=== PATIENT | female | born 1980 | race Caucasian/White ===

== ENCOUNTER 2023-04-06 20:49 | Emergency (ER) | payer OTHER, SELFPAY ==
[2023-04-06] VITALS (10 sets, daily range): BP systolic 130–134; BP diastolic 80–92; PULSE 64–94; RESP 18; TEMP 36.1; O2SAT 96–100; BMI 44.3
--- NOTE | 2023-04-06 21:16 | CRLHL7_ITS ---
For Patients: As a result of the Cures Act, medical imaging exams and procedure reports are released immediately into your electronic medical record. You may view this report before your referring provider. If you have questions, please contact your health care provider. Indication: Chest pain, chest pressure Technique: Two views of the chest Comparison: None Findings: Lungs are clear. No pleural effusion or pneumothorax. Normal heart size. Normal mediastinal contour. No acute fracture. Mild multilevel degenerative changes of the spine. Visualized upper abdomen is unremarkable. Impression: No acute cardiopulmonary process. Dictated by Porter Mejia MD @ 04/06/2023 10:02:28 PM (Electronically Signed)
--- NOTE | 2023-04-06 21:17 | ED_ITS ---
HPI - Chest Pain General Chief Complaint: Chest Pain Stated Complaint: Chest pressure Time Seen by Provider: 04/06/23 21:04 Source: patient Mode of arrival: ambulatory Limitations: no limitations History of Present Illness HPI narrative: 42-year-old female presents the emergency department with a 4-5 hour history of chest pain that started at rest. Located in the epigastric region that radiates up into the lower central chest. It is not accompanied by nausea, shortness of breath, cough or fever. No trauma or injury. Does not worsen on exertion. Does not endorse any exercise intolerance recently. She does have a history of gastric reflux which has been doing very well on famotidine which she continues to take daily. She did not try taking any antacids, Tylenol, ibuprofen or any other medications to treat her symptoms. Symptoms have worsened slightly, accompanied by some sweating this evening. She has no prior history of cardiac disease. No family history of premature coronary artery disease. No history of hyperlipidemia. She does not smoke. She has never had a stress test or echo. No history of DVT or PE. She does not endorse any shortness of breath or productive cough. Pain is constant, dull and achy in nature. It is a little worse with taking a deep breath. Past medical history notable for morbid obesity, GERD. She denies any other long-term health problems. No recent surgeries. Allergies are to sulfas and penicillins. Socially she is a nonsmoker with no pertinent travel. ROS is notable for the chest symptoms as above, otherwise denies times 12 systems. Related Data Previous Rx's Medication Instructions Recorded famotidine 40 mg tablet 40 mg PO QDAY #90 tabs 10/08/22 Allergies Allergy/AdvReac Type Severity Reaction Status Date / Time Sulfa (Sulfonamide Allergy Intermediate Verified 04/06/23 20:59 Antibiotics) penicillins Allergy Intermediate Uncoded 04/06/23 20:59 [facility] PFS Social History Smoking Status: Former smoker How often do you have a drink containing alcohol: never AUDIT-C Alcohol total score: 0 Non-prescribed substance use: denies use service: No Exam Const Vital Signs, click to edit/add: Vital Signs - 24 hr 04/06/23 20:59 04/06/23 21:08 04/06/23 21:09 Temperature 97.0 F L Pulse Rate 83 83 Pulse Rate [Right Pulse Oximeter] 94 Respiratory Rate 18 Blood Pressure 134/92 H Blood Pressure [Right Upper Arm] 132/82 Pulse Oximetry 97 99 99 Oxygen Delivery Method Room Air 04/06/23 21:15 04/06/23 21:34 04/06/23 21:45 Temperature Pulse Rate 79 75 92 Pulse Rate [Right Pulse Oximeter] Respiratory Rate Blood Pressure Blood Pressure [Right Upper Arm] Pulse Oximetry 98 99 96 Oxygen Delivery Method 04/06/23 22:00 04/06/23 22:15 04/06/23 22:30 Temperature Pulse Rate 76 67 64 Pulse Rate [Right Pulse Oximeter] Respiratory Rate Blood Pressure Blood Pressure [Right Upper Arm] Pulse Oximetry 100 99 98 Oxygen Delivery Method 04/06/23 22:32 Temperature Pulse Rate Pulse Rate [Right Pulse Oximeter] Respiratory Rate Blood Pressure Blood Pressure [Right Upper Arm] 130/80 Pulse Oximetry Oxygen Delivery Method Documenting provider has reviewed patient's vital signs: yes Other: Anxious and restless but cooperates well with exam. HENMT Common normals: normocephalic Head and scalp: normocephalic Face and sinus: normal facial exam Mouth: oral and palatal mucosa normal Throat: posterior oropharynx normal Eye Common normals: conjunctivae normal General eye: normal appearance of both eyes Conjunctiva: conjunctiva(e) normal Resp Common normals: normal respiratory effort, no use of accessory muscles and clear to auscultation bilaterally Effort & inspection: able to speak in complete sentences Auscultation: clear to auscultation bilaterally Cardio Common normals: regular rate, regular rhythm, S1 normal heart sound, S2 normal heart sound and no murmurs Rate: regular rate Rhythm: regular rhythm Heart sounds: S1 normal and S2 normal GI Common normals: Normal to inspection, nondistended, normoactive bowel sounds present, soft to palpation, no hepatosplenomegaly and no masses Palpation: soft and no hepatosplenomegaly Other: Tender palpation of epigastrium only. Mild. No rebound tenderness or guarding. No obvious mass. It is difficult to palpate the borders of the organs due to obesity. Extremity Common normals: no pedal edema Neuro Speech: speech normal Gait (neuro): normal gait Motor exam: no movement abnormalities noted Psych Common normals: thought process normal Mood and affect: anxious Thought process: normal thought process Insight: fair Judgement: fair Skin Common normals: no rashes or lesions noted General skin exam: no rashes or lesions noted Course Course Hospital Course: Differential diagnosis including acute coronary syndrome, arrhythmia, congestive heart failure, pulmonary embolism, musculoskeletal chest pain, GERD, esophagitis, among others. Exam, symptoms at rest suspicious for GI etiology. Symptoms did happen after eating as well. Recommend trial of Maalox, typical cardiac workup. [facility] winder, EKG and chest x-ray. Will re-evaluate once results are available and we have had time to assess response to Maalox. Reevaluation(s) Time of Reevaluation #1: 22:33 Reevaluation #1: Labs and imaging findings reviewed with patient, all very reassuring. She does confess that she ate a large late lunch of [employer] and drink Dr. Bell prior to her symptoms starting. Repeat exam still does not show any tenderness over the for the gallbladder and right upper quadrant, more so the left epigastrium. Did not improved with Maalox. She has not had any vomiting, hypoxia, unstable vitals. Will try dose of omeprazole and ibuprofen. Patient requested a work note through the . The rationale for this is unclear and I have declined this request. She may re-evaluate with her primary care provider if needed. Vital Signs Vital signs: Initial Vital Signs Temperature 97.0 F L 04/06/23 20:59 Temperature Source Temporal Artery Scan 04/06/23 20:59 Pulse Rate 94 04/06/23 20:59 Respiratory Rate 18 04/06/23 20:59 Blood Pressure 132/82 04/06/23 20:59 Blood Pressure Mean 98 04/06/23 20:59 Blood Pressure Position Sitting 04/06/23 20:59 Pulse Oximetry 97 04/06/23 20:59 Oxygen Delivery Method Room Air 04/06/23 20:59 Vital Signs Temperature 97.0 F L 04/06/23 20:59 Pulse Rate 94 04/06/23 20:59 Respiratory Rate 18 04/06/23 20:59 Blood Pressure 132/82 04/06/23 20:59 Pulse Oximetry 97 04/06/23 20:59 Oxygen Delivery Method Room Air 04/06/23 20:59 Temperature 97.0 F L 04/06/23 20:59 Pulse Rate 64 04/06/23 22:30 Respiratory Rate 18 04/06/23 20:59 Blood Pressure 130/80 04/06/23 22:32 Pulse Oximetry 98 04/06/23 22:30 Oxygen Delivery Method Room Air 04/06/23 20:59 MDM - Chest Pain Differential Diagnosis Differential diagnosis: Likely pneumothorax, stable angina, unstable angina pectoris, atypical chest pain, st elevation myocardial infarction, costochondritis, chest pain and biliary colic Lab Data Attestation: I reviewed the patient's lab results. Lab results narrative: All reassuring. Labs: Lab Results 04/06/23 04/06/23 Range/Units 21:16 21:25 WBC 9.54 (4.50-11.00) K/uL RBC 5.10 (4.00-5.20) m/uL Hgb 12.7 (12.0-16.0) gm/dL Hct 39.5 (33.0-51.0) % MCV 78 L (80-100) fL MCH 25 L (26-34) pg MCHC 32 (32-36) gm/dL RDW Coeff of [place] 14.5 (11.5-15.5) % Plt Count 317 (140-440) K/uL Neut % (Auto) 65.0 (42.0-72.0) % Lymph % (Auto) 26.7 (20-44) % Harris % (Auto) 6.4 (0.0-11.0) % Eos % (Auto) 1.4 (0.0-7.0) % Baso % (Auto) 0.4 (0.0-3.0) % Neut # (Auto) 6.20 (1.7-7.0) K/uL Lymph # (Auto) 2.55 (0.90-2.90) K/uL Harris # (Auto) 0.60 (0.00-0.90) K/UL Eos # (Auto) 0.13 (0.00-0.50) K/uL Baso # (Auto) 0.04 (0.00-0.30) K/uL Abs Immat Gran (auto) 0.01 (0.00-0.30) K/uL Imm/Tot Granulo (auto) 0.1 % Sodium 136 (135-149) mmol/L Potassium 3.7 (3.6-5.1) mmol/L Chloride 104 (96-114) mmol/L Carbon Dioxide 24 (20-32) mmol/L BUN 17 (5-24) mg/dL Creatinine 0.8 (0.5-1.5) mg/dL Estimated Creat Clear 75.78 Estimated GFR 94 ml/min Glucose 122 H (60-115) mg/dL Calcium 8.4 (8.4-10.6) mg/dL Total Bilirubin 0.2 (0.1-1.5) mg/dL AST 20 (12-35) U/L ALT 20 (4-35) U/L Alkaline Phosphatase 80 (40-150) U/L Troponin I < 0.01 L (0.01-0.04) ng/mL C-Reactive Protein 1.6 H (0.5-1.0) mg/dL Total Protein 7.5 (6.0-8.3) g/dL Albumin 3.8 (3.3-5.0) g/dL POC Troponin I 0.00 L (0.01-0.04) ng/ml ECG Data Attestation: I personally reviewed and interpreted this ECG as follows: Prior ECG tracings: not available for review Interpretation: Normal sinus rhythm, rate of [address] or T-wave abnormalities. Good R-wave progression. Normal axis. Discharge Plan Discharge Clinical Impression: Chest pain, non-cardiac Patient Disposition: Home, Self-Care Condition: Stable Instructions: Noncardiac Chest Pain (ED) Additional Instructions: Thankfully, there are no signs of trouble with the heart tonight. I suspect that your symptoms are either from gastric reflux or biliary colic. There are no signs of an infection or blockage within the gallbladder. Since her pain is located more over the stomach, I do not think pursuing further workup with the gallbladder will be helpful tonight. I was hoping the Maalox would be more helpful for you. As a second-line treatment, your given ibuprofen and omeprazole. This can take an hour or so to fully kick in. I reassured by your x-ray, blood work and EKG that there is nothing too serious going on tonight. I would recommend you follow a soft, bland diet. No carbonated beverages or alcohol for the next few days. Continue taking your famotidine. Consider adding in omeprazole prior to your evening meal, 20 mg [id number] dose for the next 5 days. If her symptoms fail to improve, I would recommend you follow- up with your primary care doctor in 48 hours. We can also consider additional w orkup on the gallbladder at that time to see if this is contributing. It is okay to use Tylenol and ibuprofen for the pain and it would also be okay to try Tums or other similar antacids. If you have severe shortness of breath, loss of consciousness, severe vomiting, blood in her stools or coughing up blood, I would come back to the emergency department. Activity Level: Activity as Tolerated Discharge Diet: Regular Prescriptions: No Action famotidine 40 mg tablet 40 mg PO QDAY Qty: 90 3RF Follow Up/Referrals: Suha Feliz MD [Primary Care Provider] - Stand Alone Forms: [employer] Info Instructions
[2023-04-06 21:31] LABS: Basophils Absolute Auto 0.04 K/uL (0.00-0.30); Basophils Percent Auto 0.4 % (0.0-3.0); Eosinophils Absolute Auto 0.13 K/uL (0.00-0.50); Eosinophils Percent Auto 1.4 % (0.0-7.0); Hematocrit 39.5 % (33.0-51.0); Hemoglobin* 12.7 gm/dL (12.0-16.0); Immature Granulocytes Abs Auto 0.01 K/uL (0.00-0.30); Immature Granulocytes Pct Auto 0.1 %; Lymphocytes Absolute Auto 2.55 K/uL (0.90-2.90); Lymphocytes Percent Auto 26.7 % (20-44); Mean Corpuscular HGB Conc 32 gm/dL (32-36); Mean Corpuscular Hemoglobin 25 pg (26-34); Mean Corpuscular Volume 78 fL (80-100); Monocytes Percent Auto 6.4 % (0.0-11.0); Platelet Count* 317 K/uL (140-440); RDW Coefficient of Variation % 14.5 % (11.5-15.5); White Blood Count* 9.54 K/uL (4.50-11.00)
[2023-04-06 21:34] LABS: Slide Review Reflex No
[2023-04-06] MEDS: MAG HYDROX/ALUMINUM HYD/SIMETH 30 ML ORAL.SUSP PO (21:42)
[2023-04-06] MEDS: ACETAMINOPHEN 500 MG TABLET 1000 MG PO (21:42)
[2023-04-06 21:44] LABS: Albumin* 3.8 g/dL (3.3-5.0); Chloride* 104 mmol/L (96-114)
[2023-04-06 21:45] LABS: Potassium* 3.7 mmol/L (3.6-5.1); Sodium* 136 mmol/L (135-149)
[2023-04-06 21:47] LABS: Creatinine* 0.8 mg/dL (0.5-1.5); Est. Creatinine Clearance* 75.78; Estimated Glomerular Filt Rate 94 ml/min
[2023-04-06 21:48] LABS: Alanine Aminotransferase* 20 U/L (4-35); Alkaline Phosphatase* 80 U/L (40-150); Aspartate Amino Transferase* 20 U/L (12-35); Bilirubin Total* 0.2 mg/dL (0.1-1.5); Blood Urea Nitrogen* 17 mg/dL (5-24); Calcium* 8.4 mg/dL (8.4-10.6); Carbon Dioxide* 24 mmol/L (20-32); Glucose* 122 mg/dL (60-115); Total Protein* 7.5 g/dL (6.0-8.3)
[2023-04-06 21:50] LABS: C Reactive Protein* 1.6 mg/dL (0.5-1.0)
[2023-04-06 22:00] LABS: Troponin I* < 0.01 ng/mL (0.01-0.04)
[2023-04-06] MEDS: OMEPRAZOLE 20 MG CAPSULE DR PO (22:32)
[2023-04-06] MEDS: IBUPROFEN 200 MG TABLET 600 MG PO (22:32)
--- NOTE | 2023-04-06 22:46 | ED.NURSE ---
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 Spoke with Dr. Sosa and confirmed that this current diagnosis would not restrict her from work at this time. Updated the patient. At the patient request, gave a copy of the signature page of the discharge instructions with a statement indicating that the patient was seen tonight in the ER but did not indicate any work restrictions or reason to be off work at this time.
== END 2023-04-06 22:49 | disposition home or self-care (01) ==
PROVIDERS: Emergency Provider Family Medicine; PCP Family Medicine
DX: R07.89 Other chest pain (principal)
CPT/HCPCS: 36415; 71046; 80053; 84484; 85025; 86140; 93005; 99284; 99285; A9270

== ENCOUNTER 2023-04-17 08:22 | Outpatient (CLI) | payer OTHER, SELFPAY ==
--- NOTE | 2023-04-17 08:45 | CRLHL7_ITS ---
For Patients: As a result of the Century Cures Act, medical imaging exams and procedure reports are released immediately into your electronic medical record. You may view this report before your referring provider. If you have questions, please contact your health care provider. INDICATION: Epigastric pain TECHNIQUE: Ultrasound abdomen limited. Sonographic images of the right upper quadrant were obtained using marmolejo-scale and color Doppler images. COMPARISON: None FINDINGS: Liver: Normal in size diffuse fatty infiltration. No masses. No intrahepatic biliary dilatation. Gallbladder: Cholelithiasis. Normal wall thickness. No pericholecystic fluid. Common bile duct: 4 mm. Pancreas: Normal. Right kidney: 10.7 cm. Normal echotexture and cortex. No masses, stones, or hydronephrosis. IMPRESSION: Infiltration of the liver. Cholelithiasis in an otherwise normal appearing gallbladder. Normal common bile duct appeared Dictated by Chinmay King MD @ 04/17/2023 9:30:58 AM (Electronically Signed)
== END 2023-04-17 08:23 | disposition home or self-care (01) ==
PROVIDERS: PCP Family Medicine; Visit Provider Family Medicine
DX: R10.13 Epigastric pain (principal); K80.20 Calculus of gallbladder without cholecystitis without obstruction; K76.89 Other specified diseases of liver
CPT/HCPCS: 76705

== ENCOUNTER 2023-04-24 13:43 | Outpatient (CLI) | payer OTHER, SELFPAY ==
[2023-04-24 14:40] VITALS: BP 148/88; PULSE 84; RESP 18
--- NOTE | 2023-04-24 14:42 | W.PM.STED ---
Stress Test Note Date Date Seen: 04/24/23 Date of test: 04/24/23 Providers Primary care provider: Suha Feliz Stress test physician: Dora Boyle Stress Test Note Stress test ordered: Stress Echo Indication for test: Chest pain Stress test medicine: None Results discussion: Resting EKG: Sinus rhythm, roughly 75 beats per minute. Flipped T-waves V1 and V2 without any significant ST segment changes. Resting blood pressure: 120/80 Stress test: Patient was exercised on the treadmill following standard Dion protocol. She was only able to exercise to 6 minutes 17 seconds due to bilateral knee pain from arthritis and inability to continue at that level of exercise do shortness of breath. She had no chest pain. There was some significant baseline artifact at times during recovery. During the stress test portion, no arrhythmia or significant ischemic change was noted. Likewise in recovery, no ischemia no arrhythmia, patient recovered back to baseline. She achieved 7.5 Mets at this level of activity. She had a maximum heart rate of 155 beats per minute which was 102% of a calculated target heart rate of 151. She had a rate pressure product of 20,148. Await echo images to be read by Cardiology. Impression: Subjectively negative, objectively negative EKG portion of this stress test, poor exercise tolerance is noted. Follow up suggested: Patient will await the echo images to couple this for a full formal diagnostic, she will hear from her ordering physician once the echo report is complete. She is discharged from stress testing in stable condition.
== END 2023-04-24 13:44 | disposition home or self-care (01) ==
LOC: STRESS 13:43
PROVIDERS: PCP Family Medicine; Visit Provider Family Medicine
DX: R07.89 Other chest pain (principal)
CPT/HCPCS: 93016; 93325; 93351

== ENCOUNTER 2023-05-15 08:53 | Outpatient (CLI) | payer OTHER, SELFPAY | END 2023-05-15 08:54 | disposition home or self-care (01) | LOC: NFLDREF 05-17 12:25 | PROVIDERS: PCP Family Medicine; Referring Provider Family Medicine; Visit Provider Family Medicine | DX: Z01.419 Encounter for gynecological examination (general) (routine) without abnormal findings (principal); E78.5 Hyperlipidemia, unspecified; R73.03 Prediabetes; R71.8 Other abnormality of red blood cells; E78.6 Lipoprotein deficiency; E66.01 Morbid (severe) obesity due to excess calories; F32.A Depression, unspecified; F41.9 Anxiety disorder, unspecified | CPT/HCPCS: 80061; 82728; 84443 ==

== ENCOUNTER 2023-06-12 06:07 | Day surgery (SDC) | payer OTHER, SELFPAY ==
[2023-06-12] VITALS (13 sets, daily range): BP systolic 133–171; BP diastolic 76–118; PULSE 56–90; RESP 12–24; TEMP 36.2–36.9; O2SAT 95–100; BMI 46.5
[2023-06-12] MEDS: LACTATED RINGERS 1000 ML 1,000 ML 100 ML IV (06:53)
[2023-06-12] MEDS: SODIUM CHLORIDE 0.9 % (FLUSH) 10 ML SYRINGE IVF (06:53)
[2023-06-12] MEDS: CEFAZOLIN 2 GM INJ IVP (07:52)
--- NOTE | 2023-06-12 07:56 | W.ANESCHARGE ---
Anesthesia Charges Start Date/Time Anesthesia Start Date: 06/12/23 Anesthesia Start Time: 07:40 Stop Date/Time Anesthesia Stop Date: 06/12/23 Anesthesia Stop Time: 09:16
[2023-06-12] MEDS: BUPIVACAINE 0.5% 30 ML 20 ML INJECTION (08:03)
--- NOTE | 2023-06-12 08:06 | SUR.OPER ---
PATIENT QUESTIONS ANSWERED SATISFACTORILY PREOPERATIVELY. PATIENT BROUGHT TO OR #3 PER CART. Patient positioned supine on OR #3 bed. The perioperative team supported arms bilaterally on arm boards. Final approval of positioning by surgeon.
--- NOTE | 2023-06-12 09:03 | PM.GSPRC ---
Operative Note Pre-op diagnosis: Biliary colic Post-op diagnosis: Same Type of Procedure: Laparoscopic cholecystectomy Indications: Patient is a 42-year-old female who presented to clinic with symptomatic biliary colic. Risks and benefits of operative intervention were discussed at length with the patient. Risks included but was not limited to: Bleeding, infection, risk of damage to surrounding structures, possible need for additional procedures, possible need to convert to an open operation and postoperative complications such as pneumonia, pulmonary emboli or TN. All questions and concerns were addressed with the patient agreeing to proceed. Procedure Description: After discussing the risks and benefits of the procedure, the patient signed informed consent.? The operative site was marked and the patient was brought to the operating room and placed on the operating table in supine position.? Care was taken to pad the patient's pressure points.?? The patient was then intubated by anesthesia.?? The operative site was then prepped and draped in the usual sterile fashion.? A time-out was then performed. Entrance to the abdomen was gained via a 5 mm Visiport in the left upper quadrant. The abdomen was insufflated and briefly surveyed for signs of injury. There was none. 11 mm supra umbilical port was placed as well as 2 working ports along the right costal margin. Patient was then placed in reverse Trendelenburg position with the right side up. The gallbladder fundus was grasped and retracted cephalad. A small amount of dissection was needed to free omental adhesions from the gallbladder. The infundibulum was grasped. A combination of hook cautery and blunt dissection was used to carefully dissect out the cystic duct and artery until they could clearly be seen entering the gallbladder without any intervening structures. The gallbladder was dissected off the cystic plate to achieve the critical view. Once this was achieved the cystic duct and artery were each clipped with 2 clips proximally and 1 clip distally and transected with the scissors. The gallbladder was then taken off of the liver bed. The liver was very fatty in soft. A superficial tear occurred during dissection of the gallbladder off of the fossa. Minimal bleeding occurred, which was controlled with electrocautery. The gallbladder was removed from the abdomen using an Endo-Catch bag. The gallbladder bed was surveyed for hemostasis, which was excellent. The umbilical port fascia was closed with 0 Vicryl via a Alex Jaylen. All other ports removed under direct visualization. The skin was closed with absorbable subcuticular suture. Instrument sponge and needle counts were correct at the end of the case. The patient was then woken and transferred to the PACU in stable condition. Sterile dressings were then applied. ? Findings: Cholelithiasis Anesthesia: LAURA Surgeon: Althea Mason MD Estimated blood loss (mL): 15 Specimen: Gallbladder Condition: stable Disposition: PACU Date of procedure: 06/12/23
--- NOTE | 2023-06-12 09:25 | W.ANESCHARGE ---
Anesthesia Charges Start Date/Time Anesthesia Start Date: 06/12/23 Anesthesia Start Time: 07:40 Stop Date/Time Anesthesia Stop Date: 06/12/23 Anesthesia Stop Time: 09:16
[2023-06-12] MEDS: KETOROLAC 15 MG/ML inj IVP (10:02)
[2023-06-12] MEDS: HYDROCODONE-ACETAMIN 5-325 MG 1 TAB PO (11:07)
== END 2023-06-12 12:18 | disposition home or self-care (01) ==
PROVIDERS: PCP Family Medicine; Visit Provider Surgery
PROC: 0FT44ZZ Resection of Gallbladder, Percutaneous Endoscopic Approach (ICD-10-PCS; CPT 47562; principal; 2023-06-12 07:30)
DX: K80.10 Calculus of gallbladder with chronic cholecystitis without obstruction (principal)
CPT/HCPCS: 47562; 00790; 88304; A9270; J0330; J0665; J0690; J1100; J1200; J1885; J2250; J2371; J2405; J2704; J3010; J7120

== ENCOUNTER 2023-06-26 13:48 | Outpatient (CLI) | payer OTHER, SELFPAY ==
--- NOTE | 2023-06-26 13:40 | CRLHL7_ITS ---
For Patients: As a result of the Century Cures Act, medical imaging exams and procedure reports are released immediately into your electronic medical record. You may view this report before your referring provider. If you have questions, please contact your health care provider. BILATERAL SCREENING MAMMOGRAM WITH COMPUTER-AIDED DETECTION TECHNIQUE: CC and MLO views were obtained. These mammographic images have been obtained using full-field digital technique. These mammographic images were interpreted with the benefit of computer-aided detection. COMPARISON FILM: 10/04/21. FINDINGS: The breasts are almost entirely fatty IMPRESSION: There is no radiographic evidence for malignancy. ASSESSMENT: BI-RADS Category 2: Benign RECOMMENDATION: Routine screening mammogram in 1 year. A lay language report of this examination will be provided to the patient. Chinmay Dias M.D. Diagnostic Radiologist [email or web address] ELIAS/Dictated by: Chinmay Dias MD @ 06/27/2023 12:22:00 PM (Electronically Signed)
== END 2023-06-26 13:49 | disposition home or self-care (01) ==
LOC: MAMMO 13:50
PROVIDERS: PCP Family Medicine; Visit Provider Family Medicine
DX: Z12.31 Encounter for screening mammogram for malignant neoplasm of breast (principal)
CPT/HCPCS: 77063; 77067

== ENCOUNTER 2023-06-30 15:08 | Emergency (ER) | payer OTHER, SELFPAY ==
[2023-06-30 15:44] VITALS: BP 130/80; PULSE 56; RESP 20; TEMP 36.2; O2SAT 99; BMI 45.2
--- NOTE | 2023-06-30 16:59 | ED_ITS ---
HPI - General Adult General Time Seen by Provider: 17:00 Date Seen: 06/30/23 Chief complaint: Abdominal Pain Stated complaint: Gall bladder surgery 06/12-sharp pain on R side Time Seen by Provider: 06/30/23 16:32 History of Present Illness HPI narrative: This is a very pleasant 42-year-old female with a past medical history including gallstones, laparoscopic cholecystectomy performed on 06/12, epigastric pain, GERD, prediabetes, obesity, migraine headaches, anxiety/depression. She reports that she had her gallbladder surgery a on the and that the surgery seemed to be going well. She did have some anticipated postoperative pain but got better fairly quickly and was back to work, working part-time within a week of her surgery. She feels like she might have gone back to work too quickly but overall was healing well so she was able to go back. She normally works 10-12 hour shifts, but has only been working 8 hour shifts since her surgery, to light in her overall burden. She had been doing well. Last week she began to have some mild episodes of right upper quadrant crampy pain. They were fairly manageable. However since Friday and that she has been having more significant severe crampy pain affecting her right upper quadrant and right flank. She is not sure what made the pain get worse. No clear injury, food, or provoking factor. No other symptoms. No nausea or vomiting. No diarrhea. No urinary symptoms. She had a normal menstrual cycle last week and that is over. She does not think she is . No fevers. No rash. Her incisions med healing well. No redness, bleeding, purulent drainage. Related Data Previous Rx's Medication Instructions Recorded omeprazole 40 mg capsule,delayed 40 mg PO QDAY #90 caps 05/22/23 release semaglutide (weight loss) 0.25 0.25 mg (0.5 mL) subcut QWEEK #2 mL 05/22/23 mg/0.5 mL subcutaneous pen injector (Wegovy) semaglutide (weight loss) 0.5 0.5 mg (0.5 mL) subcut Q7D #2 mL 05/22/23 mg/0.5 mL subcutaneous pen injector (Wegovy) hydrocodone 5 mg-acetaminophen 325 1 tab PO Q6H PRN pain #15 tabs 06/12/23 mg tablet sennosides 8.6 mg capsule (senna) 8.6 mg PO DAILY PRN constipation 06/12/23 #90 caps calcium polycarbophil 625 mg 1,250 mg (2 x 625 mg) PO BID #100 06/26/23 tablet (FiberCon) tabs hydrocodone 5 mg-acetaminophen 325 1 tab PO Q6H PRN pain #10 tabs 06/30/23 mg tablet Allergies Allergy/AdvReac Type Severity Reaction Status Date / Time Sulfa (Sulfonamide Allergy Intermediate Verified 06/30/23 17:41 Antibiotics) Penicillins Allergy Unknown Unknown Verified 06/30/23 17:41 [facility] Medical History (Updated 06/30/23 @ 19:08 by Yrn Almodovar MD) GERD (gastroesophageal reflux disease) (2018) ?K21.9 - Gastro-esophageal reflux disease without esophagitis (ICD-10) Varicose veins of left lower extremity ?I83.92 - Asymptomatic varicose veins of left lower extremity (ICD-10) Superficial thrombophlebitis ?I80.9 - Phlebitis and thrombophlebitis of unspecified site (ICD-10) Prediabetes (02/2020) ?R73.03 - Prediabetes (ICD-10) High density lipoprotein (HDL) less than 40 mg/dL ?E78.6 - Lipoprotein deficiency (ICD-10) History of migraine ?Z86.69 - Personal history of other diseases of the nervous system and sense organs (ICD-10) History of chronic back pain ?Z87.39 - Personal history of other diseases of the musculoskeletal system and connective tissue (ICD-10) Surgical History (Updated 04/08/23 @ 06:26 by Suha Feliz MD) Encounter for Essure implantation ?Z30.2 - Encounter for sterilization (ICD-10) History of arthroscopy of left knee (2016) ?Z98.890 - Other specified postprocedural states (ICD-10) Family History (Updated 04/07/23 @ 12:36 by Deena Khan ~ PSR) Mother Diabetes Migraine headache High blood pressure Maternal Grandmother Diabetes Social History (Updated 05/22/23 @ 13:08 by Brittani Pierce ~ CTA) Narrative: 3 kids Stock Analyst at [employer] Social drinker 1-2 week stopped smoking 2018, 15 pack years Does not exercise What is your current living situation?: I presently have a place to live Problems where you live: no known problems In the past 12 months, utilities in danger of being shut off: no In past 12 months, lack of transportation kept you from medical appts, meetings, work, or getting things needed for daily living: no In the past 12 mos, have been you worried that your food would run out before you had money to buy more?: never true In the past 12 mos, the food you bought just didn't last and you didn't have money to buy more?: never true Smoking Status: Never smoker How often do you have a drink containing alcohol: never AUDIT-C Alcohol total score: 0 Non-prescribed substance use: denies use How often does anyone, including family, friends and others, physically hurt you : never How often does anyone, including family, friends and others, insult or talk down to you: rarely How often does anyone, including family, friends and others, threaten you with harm: never How often does anyone, including family, friends and others, scream or curse at you: rarely Little interest or pleasure in doing things: more than half the days Feeling down, depressed, or hopeless: more than half the days Are you using contraception or practicing any form of control: No service: No Exam Narrative: Exam Narrative: Constitutional: Appears well-developed and well-nourished. Alert. Conversant. Non toxic. She is uncomfortable but politely declines the offer of analgesia. HENT: Head: Atraumatic. Nose: Nose normal. Mouth/Throat: Oral mucosa is clear and moist. no trismus. Pharynx normal. Tonsils symmetric. No tonsillar enlargement, erythema, or exudate. Eyes: Conjunctivae normal. EOM normal. Pupils equal, round, and reactive to light. No scleral icterus. Neck: Normal range of motion. Neck supple. No tracheal deviation present. Cardiovascular: Normal rate, regular rhythm. No gallop. No friction rub. No murmur heard. Symmetric radial artery pulses Pulmonary/Chest: Effort normal. No stridor. No respiratory distress. No wheezes. No rales. No rhonchi . No tenderness. Abdominal: For healing laparoscopic incisions look good. She does have tenderness in the right upper quadrant. No Browne sign. Mild right CVA tenderness. Otherwise left upper quadrant and lower abdomen is nontender. Soft. Bowel sounds normal. No distension. No mass. No rebound. No guarding. Musculoskeletal: RUE: Normal range of motion. No tenderness. No deformity LUE: Normal range of motion. No tenderness. No deformity RLE: Normal range of motion. No edema. No tenderness. No deformity LLE: Normal range of motion. No edema. No tenderness. No deformity Neurological: Alert and oriented to person, place, and time. Normal strength. CN II-VII intact. No sensory deficit. GCS eye subscore is 4. GCS verbal subscore is 5. GCS motor subscore is 6. Normal coordination Skin: Skin is warm and dry. No rash noted. No pallor. Normal capillary refill. Psychiatric: Normal mood. Normal affect. Const: Vital Signs, click to edit/add: Vital Signs - 24 hr 06/30/23 15:44 06/30/23 17:30 Temperature 97.2 F L Pulse Rate [Right Pulse Oximeter] 56 L 58 L Respiratory Rate 20 20 Blood Pressure [Ri ght Upper Arm] 130/80 152/77 H Pulse Oximetry 99 99 Oxygen Delivery Me thod Room Air Room Air Course Course ED Course: Recheck-rip patient resting in bed. Still having some pain but Tolerable. Discussed with her surgeon, Dr. Mason. Dr. Mason recommends outpatient follow-up. No acute surgical intervention or hospitalization at this time. She recommends bland diet, rest, follow-up in clinic with the patient's primary care provider (or with her). Vital Signs Vital signs: Initial Vital Signs Temperature 97.2 F L 06/30/23 15:44 Temperature Source Temporal Artery Scan 06/30/23 15:44 Pulse Rate 56 L 06/30/23 15:44 Respiratory Rate 20 06/30/23 15:44 Blood Pressure 130/80 06/30/23 15:44 Blood Pressure Mean 96 06/30/23 15:44 Blood Pressure Position Sitting 06/30/23 15:44 Pulse Oximetry 99 06/30/23 15:44 Oxygen Delivery Method Room Air 06/30/23 15:44 Vital Signs Temperature 97.2 F L 06/30/23 15:44 Pulse Rate 56 L 06/30/23 15:44 Respiratory Rate 20 06/30/23 15:44 Blood Pressure 130/80 06/30/23 15:44 Pulse Oximetry 99 06/30/23 15:44 Oxygen Delivery Method Room Air 06/30/23 15:44 Temperature 97.2 F L 06/30/23 15:44 Pulse Rate 58 L 06/30/23 17:30 Respiratory Rate 20 06/30/23 17:30 Blood Pressure 152/77 H 06/30/23 17:30 Pulse Oximetry 99 06/30/23 17:30 Oxygen Delivery Method Room Air 06/30/23 17:30 Medical Decision Making MDM Narrative Medical decision making narrative: Presented to the Emergency Department with right upper quad abdominal pain she is currently about 2 and half weeks status post laparoscopic cholecystectomy. Per patient and surgeon report the surgery was uneventful and went smoothly. She had been recovering nicely but now is having flaring pain for the past few days.. The differential diagnosis of abdominal pain includes: Bile leak, postoperative abscess, infection, abdominal wall cellulitis or abscess, he patitis, pancreatitis, kidney stone, pyelonephritis, early onset Appendicitis, Bowel Obstruction, Ulcer, Ischemia, Diverticulitis, Pancreatitis, UTI, kidney stone, Enteritis/Colitis, amongst many other etiologies. Laboratory testing does not reveal a cause for the patient's pain. negative. Fortunately, CT Imaging is noted to be normal. Discussed with her surgeon, Dr. Mason. She recommends supportive care, pain control, bland diet, and outpatient follow-up either with her primary care or with Dr. Mason in clinic. At this point no surgical emergency. No need for transfer to for ERCP. The exact etiology of the abdominal pain is not clear at this time. No life threatening cause or need for emergent surgery or hospital admission is detected today. The patient was advised that if symptoms do not completely resolve within another 24 hours re-evaluation with primary care , or surgery, or return to the ED is indicated. The patient also understands that if they worsen, they should return to the ER right away. I discussed the uncertainty about the diagnosis and answered the patient's questions. Abdominal pain return precautions discussed. Refill prescription for hydrocodone provided. Reviewed opiate precautions and sedation. Work note provided. Lab Data Labs: Lab Results 06/30/23 06/30/23 Range/Units 17:03 17:25 WBC 8.43 (4.50-11.00) K/uL RBC 4.87 (4.00-5.20) m/uL Hgb 12.0 (12.0-16.0) gm/dL Hct 38.3 (33.0-51.0) % MCV 79 L (80-100) fL MCH 25 L (26-34) pg MCHC 31 L (32-36) gm/dL RDW Coeff of [place] 14.5 (11.5-15.5) % Plt Count 305 (140-440) K/uL Neut % (Auto) 58.5 (42.0-72.0) % Lymph % (Auto) 33.9 (20-44) % Creek % (Auto) 5.2 (0.0-11.0) % Eos % (Auto) 2.0 (0.0-7.0) % Baso % (Auto) 0.4 (0.0-3.0) % Neut # (Auto) 4.93 (1.7-7.0) K/uL Lymph # (Auto) 2.86 (0.90-2.90) K/uL Creek # (Auto) 0.40 (0.00-0.90) K/UL Eos # (Auto) 0.17 (0.00-0.50) K/uL Baso # (Auto) 0.03 (0.00-0.30) K/uL Abs Immat Gran (auto) 0.00 (0.00-0.30) K/uL Imm/Tot Granulo (auto) 0.0 % Sodium 137 (135-149) mmol/L Potassium 4.1 (3.6-5.1) mmol/L Chloride 106 (96-114) mmol/L Carbon Dioxide 25 (20-32) mmol/L Anion Gap 6 L (7-15) mEq/L BUN 16 (5-24) mg/dL Creatinine 0.8 (0.5-1.5) mg/dL Estimated Creat Clear 75.78 Estimated GFR 94 ml/min Glucose 87 (60-115) mg/dL Calcium 8.8 (8.4-10.6) mg/dL Total Bilirubin 0.3 (0.1-1.5) mg/dL AST 31 (12-35) U/L ALT 24 (4-35) U/L Alkaline Phosphatase 93 (40-150) U/L Total Protein 7.7 (6.0-8.3) g/dL Albumin 4.0 (3.3-5.0) g/dL Lipase 86 (23-300) U/L Urine Color Yellow (Yellow) Urine Appearance Clear (Clear) Urine pH 5.5 (5.0-8.5) Ur Specific Eastern >= 1.030 (1.000-1.030) Urine Protein Negative (Negative) Urine Glucose (UA) Negative (Negative) Urine Ketones Negative (Negative) Urine Blood Negative (Negative) Urine Nitrite Negative (Negative) Urine Bilirubin Negative (Negative) Urine Urobilinogen 0.2 (0.2-1.0) Ur Leukocyte Esterase Negative (Negative) Urine RBC 0-2 (0-2) Urine WBC 0-2 (0-5) Ur Squamous Epith Cells Few (None-Few) Urine Bacteria Few A (None) Urine HCG, Qual Negative (Negative) Imaging Data CT scan - abdomen: Attestation: I have reviewed the pertinent imaging results. Radiologist's impression: Impression: Minimal residual postoperative changes from likely ventral abdominal port site in the epigastrium with mild residual fluid and inflammatory change. Prior cholecystectomy with otherwise unremarkable operative bed. No acute intra-abdominal abnormalities or complications. Discharge Plan Discharge Clinical Impression: Abdominal pain, RUQ Patient Disposition: Home, Self-Care Condition: Stable Instructions: Abdominal Pain (ED) Additional Instructions: Has was discussed, for the next couple of days try to rest and avoid strenuous physical activity or lifting. Try to eat healthy but bland diet. Use pain medications if needed but be careful because they can cause drowsiness, dizziness, and constipation. If your pain is not completely improve within 24-48 hours, recheck with Dr. Mason or with your regular doctor. If you are not able to recheck with her doctors, come back to the ER. If your pain gets worse, or if you have other w orsening symptoms, come back to the ER right away. Prescriptions: New hydrocodone-acetaminophen 5-325 mg tablet 1 tab PO Q6H PRN (Reason: pain) Qty: 10 0RF No Action Wegovy 0.25 mg/0.5 mL pen injector 0.25 mg subcut QWEEK Qty: 2 0RF Rx Instructions: administer weeks 1 through 4 of therapy Wegovy 0.5 mg/0.5 mL pen injector 0.5 mg subcut Q7D Qty: 2 0RF Rx Instructions: administer weeks 5 through 8 of therapy omeprazole 40 mg capsule,delayed release(DR/EC) 40 mg PO QDAY Qty: 90 3RF calcium polycarbophil [FiberCon] 625 mg tablet 1,250 mg PO BID Qty: 100 5RF hydrocodone-acetaminophen 5-325 mg tablet 1 tab PO Q6H PRN (Reason: pain) Qty: 15 0RF senna 8.6 mg capsule 8.6 mg PO DAILY PRN (Reason: constipation) Qty: 90 0RF Follow Up/Referrals: Suha Feliz MD [Primary Care Provider] - Stand Alone Forms: MyHealth Info Instructions
--- NOTE | 2023-06-30 17:02 | CRLHL7_ITS ---
For Patients: As a result of the Century Cures Act, medical imaging exams and procedure reports are released immediately into your electronic medical record. You may view this report before your referring provider. If you have questions, please contact your health care provider. Indication: Right upper quadrant pain x2 weeks status post laparoscopic surgery Technique: Volumetric multidetector CT images of the abdomen and pelvis were obtained after the administration of intravenous contrast. 125 cc Isovue 370 low osmolar intravenous contrast Comparison: Abdominal ultrasound April 17, 2023 Findings: The lung bases are clear. The liver is normal in attenuation without intrahepatic biliary ductal dilatation. The portal vein is patent. There is prior cholecystectomy. No evidence of biloma or complication within the operative bed. There is no significant common biliary ductal dilatation or abrupt cut off. The spleen is normal in enhancement and size. The stomach and duodenum are grossly unremarkable. The pancreas is normal in enhancement without significant atrophy. The adrenal glands are unremarkable. The kidneys demonstrate preserved corticomedullary differentiation without evidence of obstructive uropathy. There is moderate stool seen throughout the colon with decompressed appearance of the distal colon with colonic diverticulosis without evidence of diverticulitis. The appendix is unremarkable. There is no significant mesenteric, retroperitoneal, or pelvic sidewall lymph nodes. The aorta is nonaneurysmal. There is no significant atherosclerotic disease appreciated. Fallopian tube occlusion devices are appreciated. Otherwise, the pelvic viscera are grossly within normal limits. There is no free fluid or free air. There is demonstration of minimal residual likely postoperative seroma and/or hematoma within the right upper quadrant abdominal wall within the superficial soft tissues. There is demonstration of a fat containing umbilical hernia. Mild degenerative changes of the lumbar spine are appreciated without acute osseous abnormality. Impression: Minimal residual postoperative changes from likely ventral abdominal port site in the epigastrium with mild residual fluid and inflammatory change. Prior cholecystectomy with otherwise unremarkable operative bed. No acute intra-abdominal abnormalities or complications. Please note that all CT scans at this facility use dose modulation, iterative reconstruction, and/or weight-based dosing when appropriate to reduce radiation dose to as low as reasonably achievable. Dictated by Scotty Castellano MD @ 06/30/2023 6:31:50 PM (Electronically Signed)
[2023-06-30 17:20] LABS: Appearance Urine Clear (Clear); Bilirubin Urine Negative (Negative); Blood Urine Negative (Negative); Color Urine Yellow (Yellow); Glucose Urine Negative (Negative); Ketones Urine Negative (Negative); Leukocyte Esterase Urine Negative (Negative); Nitrite Urine Negative (Negative); Protein Urine Negative (Negative); Specific Gravity Urine >= 1.030 (1.000-1.030); Urobilinogen Urine 0.2 (0.2-1.0); pH Urine 5.5 (5.0-8.5)
[2023-06-30 17:22] LABS: Ur HCG Qualitative* Negative (Negative)
[2023-06-30 17:30] VITALS: BP 152/77; PULSE 58; RESP 20; O2SAT 99
[2023-06-30 17:32] LABS: Basophils Absolute Auto 0.03 K/uL (0.00-0.30); Basophils Percent Auto 0.4 % (0.0-3.0); Eosinophils Absolute Auto 0.17 K/uL (0.00-0.50); Hematocrit 38.3 % (33.0-51.0); Lymphocytes Absolute Auto 2.86 K/uL (0.90-2.90); Lymphocytes Percent Auto 33.9 % (20-44); Mean Corpuscular HGB Conc 31 gm/dL (32-36); Mean Corpuscular Hemoglobin 25 pg (26-34); Mean Corpuscular Volume 79 fL (80-100); Monocytes Percent Auto 5.2 % (0.0-11.0); Neutrophils Absolute Auto 4.93 K/uL (1.7-7.0); Neutrophils Percent Auto 58.5 % (42.0-72.0); Platelet Count* 305 K/uL (140-440); RDW Coefficient of Variation % 14.5 % (11.5-15.5); Red Blood Count 4.87 m/uL (4.00-5.20); White Blood Count* 8.43 K/uL (4.50-11.00)
[2023-06-30 17:33] LABS: Bacteria Urine Few; RBC Urine 0-2 (0-2); Squamous Epithelial Cell Urine Few (None-Few); WBC Urine 0-2 (0-5)
[2023-06-30 17:35] LABS: Slide Review Reflex No
[2023-06-30 17:52] LABS: Chloride* 106 mmol/L (96-114); Potassium* 4.1 mmol/L (3.6-5.1); Sodium* 137 mmol/L (135-149)
[2023-06-30 17:54] LABS: Anion Gap 6 mEq/L (7-15); Bilirubin Total* 0.3 mg/dL (0.1-1.5); Carbon Dioxide* 25 mmol/L (20-32); Creatinine* 0.8 mg/dL (0.5-1.5); Est. Creatinine Clearance* 75.78; Estimated Glomerular Filt Rate 94 ml/min
[2023-06-30 17:55] LABS: Alanine Aminotransferase* 24 U/L (4-35); Alkaline Phosphatase* 93 U/L (40-150); Aspartate Amino Transferase* 31 U/L (12-35); Blood Urea Nitrogen* 16 mg/dL (5-24); Calcium* 8.8 mg/dL (8.4-10.6); Glucose* 87 mg/dL (60-115); Lipase* 86 U/L (23-300); Total Protein* 7.7 g/dL (6.0-8.3)
== END 2023-06-30 19:25 | disposition home or self-care (01) ==
PROVIDERS: Emergency Provider Emergency Medicine; PCP Family Medicine
DX: R10.11 Right upper quadrant pain (principal)
CPT/HCPCS: 36415; 74177; 80053; 81001; 81025; 83690; 85025; 87086; 99284; Q9967

== ENCOUNTER 2023-07-10 11:29 | Emergency (ER) | payer OTHER, SELFPAY ==
[2023-07-10 11:35] VITALS: BP 115/84; PULSE 73; RESP 14; TEMP 36.2; O2SAT 100; BMI 46.1
--- NOTE | 2023-07-10 12:18 | ED_ITS ---
HPI - General Adult General Time Seen by Provider: 12:18 Date Seen: 07/10/23 Chief complaint: Abdominal Pain Stated complaint: R side pain Time Seen by Provider: 07/10/23 11:47 History of Present Illness HPI narrative: pleasant 42-year-old female with a past medical history including gallstones, laparoscopic cholecystectomy performed on 06/12, epigastric pain, GERD, prediabetes, obesity, migraine headaches, anxiety/depression. She returns to the ER today for re-evaluation of ongoing right upper quadrant abdominal pain. She had her gallbladder surgery a on the and that the surgery seemed to be going well. She did have some anticipated postoperative pain but got better fairly quickly and was back to work, working part-time within a week of her surgery. After that she redeveloped some worsening right upper quadrant abdomin al pain and came to the ER on 06/30. I saw her. At that point exam was reassuring. Workup was reassuring. CBC, CMP, lipase, urinalysis, CT scan all essentially normal. I gave her a note for work. She had a follow-up visit with her PCP on 07/04-4 days later. She had a repeat CBC that was normal. She had a plain film of her abdomen that showed nonspecific findings, possibly enteritis. She was put on senna for possible constipation. She had been stooling even before the senna. On the senna she now is having 2-3 BMs per day. She was also to told to start taking a high- fiber diet. On that stools became more loose. Since she has been stooling regularly, at least a couple of times per day, she has taken herself off of her senna and fiber. She still having ongoing pain in her right upper quadrant. She says the pain comes and goes but is worse when she sits up and is better when she lays semi recumbent. She says it feels like ?a ball? is in there. Sometimes the ball is small, roughly the size of her fist and sometimes it spreads out to involved most of her upper abdomen. No other symptoms. No jaundice. No rash. No fever. No nausea or vomiting. She is having soft bowel movements a couple of times a day but not really diarrhea or bloody stool. No urinary symptoms. Sensor clinic follow-up her bowel movements have been at least a couple of times today so she stopped the senna. She still has the ongoing pain like a ball in her right upper quadrant. No other new symptoms. No fever. No jaundice. No trouble breathing. No cough. No rashes. No injury. Normal appetite. No urinary symptoms. She culture clinic today to get an extension work note so she can miss more time from work to recover. She was referred by her primary care back to the ER today. Related Data Previous Rx's Medication Instructions Recorded omeprazole 40 mg capsule,delayed 40 mg PO QDAY #90 caps 05/22/23 release semaglutide (weight loss) 0.25 0.25 mg (0.5 mL) subcut QWEEK #2 mL 05/22/23 mg/0.5 mL subcutaneous pen injector (Wegovy) semaglutide (weight loss) 0.5 0.5 mg (0.5 mL) subcut Q7D #2 mL 05/22/23 mg/0.5 mL subcutaneous pen injector (Wegovy) sennosides 8.6 mg capsule (senna) 8.6 mg PO DAILY PRN constipation 06/12/23 #90 caps calcium polycarbophil 625 mg 1,250 mg (2 x 625 mg) PO BID #100 06/26/23 tablet (FiberCon) tabs hydrocodone 5 mg-acetaminophen 325 1 tab PO Q6H PRN pain #10 tabs 06/30/23 mg tablet cyclobenzaprine 10 mg tablet 10 mg PO BID PRN muscle spasm #14 07/04/23 tabs cyclobenzaprine 10 mg tablet 10 mg PO Q12H PRN muscle spasm #10 07/10/23 tabs Allergies Allergy/AdvReac Type Severity Reaction Status Date / Time Sulfa (Sulfonamide Allergy Intermediate Verified 07/04/23 14:56 Antibiotics) Penicillins Allergy Unknown Unknown Verified 07/04/23 14:56 [facility] Medical History (Updated 07/10/23 @ 14:14 by Yrn Almodovar MD) Cholelithiasis ?K80.20 - Calculus of gallbladder without cholecystitis without obstruction (ICD-10) GERD (gastroesophageal reflux disease) (2018) ?K21.9 - Gastro-esophageal reflux disease without esophagitis (ICD-10) Varicose veins of left lower extremity ?I83.92 - Asymptomatic varicose veins of left lower extremity (ICD-10) Superficial thrombophlebitis ?I80.9 - Phlebitis and thrombophlebitis of unspecified site (ICD-10) Prediabetes (02/2020) ?R73.03 - Prediabetes (ICD-10) High density lipoprotein (HDL) less than 40 mg/dL ?E78.6 - Lipoprotein deficiency (ICD-10) History of migraine ?Z86.69 - Personal history of other diseases of the nervous system and sense organs (ICD-10) History of chronic back pain ?Z87.39 - Personal history of other diseases of the musculoskeletal system and connective tissue (ICD-10) Surgical History (Updated 07/04/23 @ 07:29 by Suha Feliz MD) History of cholecystectomy (06/12/23) ?Z90.49 - Acquired absence of other specified parts of digestive tract (ICD- 10) Encounter for Essure implantation ?Z30.2 - Encounter for sterilization (ICD-10) History of arthroscopy of left knee (2015) ?Z98.890 - Other specified postprocedural states (ICD-10) Family History (Updated 04/07/23 @ 12:36 by Deena Khan ~ PSR) Mother Diabetes Migraine headache High blood pressure Maternal Grandmother Diabetes Social History (Updated 05/22/23 @ 13:08 by Brittani Pierce ~ CTA) 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[employer] Social drinker 1-2 week stopped smoking 2018, 15 pack years Does not exercise What is your current living situation?: I presently have a place to live Problems where you live: no known problems In the past 12 months, utilities in danger of being shut off: no In past 12 months, lack of transportation kept you from medical appts, meetings, work, or getting things needed for daily living: no In the past 12 mos, have been you worried that your food would run out before you had money to buy more?: never true In the past 12 mos, the food you bought just didn't last and you didn't have money to buy more?: never true Smoking Status: Never smoker Do you use any of these nicotine containing products: None How often do you have a drink containing alcohol: never How often do you have six or more drinks on one occasion: Never AUDIT-C Alcohol total score: 0 Non-prescribed substance use: denies use How often does anyone, including family, friends and others, physically hurt you : never How often does anyone, including family, friends and others, insult or talk down to you: rarely How often does anyone, including family, friends and others, threaten you with harm: never How often does anyone, including family, friends and others, scream or curse at you: rarely Little interest or pleasure in doing things: more than half the days Feeling down, depressed, or hopeless: more than half the days Are you using contraception or practicing any form of control: No service: No Exam Narrative: Exam Narrative: Constitutional: Appears well-developed and well-nourished. Alert. Conversant. Non toxic. HENT: Head: Atraumatic. Nose: Nose normal. Mouth/Throat: Oral mucosa is clear and moist. no trismus. Pharynx normal. Tonsils symmetric. No tonsillar enlargement, erythema, or exudate. Eyes: Conjunctivae normal. EOM normal. Pupils equal, round, and reactive to light. No scleral icterus. Neck: Normal range of motion. Neck supple. No tracheal deviation present. Cardiovascular: Normal rate, regular rhythm. No gallop. No friction rub. No murmur heard. Symmetric radial artery pulses Pulmonary/Chest: Effort normal. No stridor. No respiratory distress. No wheezes. No rales. No rhonchi . No tenderness. Abdominal: Soft. Bowel sounds normal. No distension. No mass. Mild right upper quadrant tenderness. No Browne sign No rebound. No guarding. Her laparoscopic incisions appear to be healing well. No dehiscence, drainage, erythema. The suprapubic laparoscopic incision is nontender but does have a little bit of firm tissue in the subcutaneous region, likely scarring/healing from stitches. Not really consistent with a hematoma or seroma and his not in the area of her pain. Musculoskeletal: RUE: Normal range of motion. No tenderness. No deformity LUE: Normal range of motion. No tenderness. No deformity RLE: Normal range of motion. No edema. No tenderness. No deformity LLE: Normal range of motion. No edema. No tenderness. No deformity Lymph: No cervical adenopathy. Neurological: Alert and oriented to person, place, and time. Normal strength. CN II-VII intact. No sensory deficit. GCS eye subscore is 4. GCS verbal subscore is 5. GCS motor subscore is 6. Normal coordination Skin: Skin is warm and dry. No rash noted. No pallor. Normal capillary refill. Psychiatric: Normal mood. Normal affect. Const: Vital Signs, click to edit/add: Vital Signs - 24 hr 07/10/23 11:35 07/10/23 13:53 Temperature 97.2 F L Pulse Rate [Pulse Oximeter] 73 85 Respiratory Rate 14 20 Blood Pressure [Ri ght Upper Arm] 115/84 113/87 Pulse Oximetry 100 100 Oxygen Delivery Me thod Room Air Room Air Course Reevaluation(s) Reevaluation #1: Labs back, they look normal/reassuring. Discussed with surgery, Dr. Harrison. She reviewed the patient's presentation, recent labs, imaging findings. Recommendations would be supportive care for now, follow-up [facility]. Given restrictions, the patient will need time off work. She needs a note. I will give the patient a note to be off work until follow-up. Vital Signs Vital signs: Initial Vital Signs Temperature 97.2 F L 07/10/23 11:35 Temperature Source Temporal Artery Scan 07/10/23 11:35 Pulse Rate 73 07/10/23 11:35 Pulse Rhythm Regular 07/10/23 11:35 Respiratory Rate 14 07/10/23 11:35 Blood Pressure 115/84 07/10/23 11:35 Blood Pressure Mean 94 07/10/23 11:35 Blood Pressure Position Sitting 07/10/23 11:35 Pulse Oximetry 100 07/10/23 11:35 Oxygen Delivery Method Room Air 07/10/23 11:35 Vital Signs Temperature 97.2 F L 07/10/23 11:35 Pulse Rate 73 07/10/23 11:35 Respiratory Rate 14 07/10/23 11:35 Blood Pressure 115/84 07/10/23 11:35 Pulse Oximetry 100 07/10/23 11:35 Oxygen Delivery Method Room Air 07/10/23 11:35 Temperature 97.2 F L 07/10/23 11:35 Pulse Rate 85 07/10/23 13:53 Respiratory Rate 20 07/10/23 13:53 Blood Pressure 113/87 07/10/23 13:53 Pulse Oximetry 100 07/10/23 13:53 Oxygen Delivery Method Room Air 07/10/23 13:53 Medical Decision Making MDM Narrative Medical decision making narrative: This patient returns to the Emergency Department with ongoing right upper quad abdominal pain she is currently a almost a month status post laparoscopic cholecystectomy. Per patient and surgeon report the surgery was uneventful and went smoothly. I saw her on the and at that time labs and CT imaging were reassuring. She had follow-up labs and x-ray imaging on the that were again essentially normal. The differential diagnosis of abdominal pain includes: Bile leak, postoperative abscess, infection, abdominal wall cellulitis or abscess, hepatitis, pancreatitis, kidney stone, pyelonephritis, early onset Appendicitis, Bowel Obstruction, Ulcer, Ischemia, Diverticulitis, Pancreatitis, UTI, kidney stone, Enteritis/Colitis, amongst many other etiologies. Laboratory testing does not reveal a cause for the patient's pain. LFTs and lipase fortunately normal. Discussed with on-call surgery, Dr. Stuart. She recommends supportive care, pain control, bland diet, and outpatient follow- up either with Dr. Mason in clinic in 1 week on 07/17. At this point no surgical emergency. No need for transfer to for ERCP. The exact etiology of the abdominal pain is not clear at this time. No life threatening cause or need for emergent surgery or hospital admission is detected today. The patient also understands that if they worsen, they should return to the ER right away. I discussed the uncertainty about the diagnosis and answered the patient's questions. Abdominal pain return precautions discussed. Reviewed opiate precautions and sedation. Work note provided. Refill prescription for Flexeril. Lab Data Labs: Lab Results 07/10/23 Range/Units 12:37 WBC 7.10 (4.50-11.00) K/uL RBC 4.99 (4.00-5.20) m/uL Hgb 12.2 (12.0-16.0) gm/dL Hct 39.0 (33.0-51.0) % MCV 78 L (80-100) fL MCH 24 L (26-34) pg MCHC 31 L (32-36) gm/dL RDW Coeff of [place] 14.8 (11.5-15.5) % Plt Count 268 (140-440) K/uL Neut % (Auto) 64.0 (42.0-72.0) % Lymph % (Auto) 27.9 (20-44) % [place] % (Auto) 5.9 (0.0-11.0) % Eos % (Auto) 1.7 (0.0-7.0) % Baso % (Auto) 0.4 (0.0-3.0) % Neut # (Auto) 4.54 (1.7-7.0) K/uL Lymph # (Auto) 1.98 (0.90-2.90) K/uL [place] # (Auto) 0.40 (0.00-0.90) K/UL Eos # (Auto) 0.12 (0.00-0.50) K/uL Baso # (Auto) 0.03 (0.00-0.30) K/uL Abs Immat Gran (auto) 0.01 (0.00-0.30) K/uL Imm/Tot Granulo (auto) 0.1 % Sodium 138 (135-149) mmol/L Potassium 4.2 (3.6-5.1) mmol/L Chloride 101 (96-114) mmol/L Carbon Dioxide 26 (20-32) mmol/L Anion Gap 11 (7-15) mEq/L BUN 14 (5-24) mg/dL Creatinine 0.7 (0.5-1.5) mg/dL Estimated Creat Clear 86.61 Estimated GFR 111 ml/min Glucose 94 (60-115) mg/dL Calcium 8.7 (8.4-10.6) mg/dL Total Bilirubin 0.3 (0.1-1.5) mg/dL AST 31 (12-35) U/L ALT 24 (4-35) U/L Alkaline Phosphatase 83 (40-150) U/L C-Reactive Protein 1.1 H (0.5-1.0) mg/dL Total Protein 7.6 (6.0-8.3) g/dL Albumin 3.9 (3.3-5.0) g/dL Lipase 59 (23-300) U/L Discharge Plan Discharge Clinical Impression: Abdominal pain, RUQ Patient Disposition: Home, Self-Care Condition: Stable Instructions: Abdominal Pain (ED) Additional Instructions: As we discussed, please follow-up with Dr. Mason for a recheck evaluation next on 07/17. If your pain gets worse before then, or if you have other worsening symptoms such as fever, vomiting, jaundice, return to the ER right away to be recheck. Use Flexeril as needed for pain and spasm but be careful because it can cause drowsiness. Prescriptions: New cyclobenzaprine 10 mg tablet 10 mg PO Q12H PRN (Reason: muscle spasm) Qty: 10 0RF No Action Wegovy 0.25 mg/0.5 mL pen injector 0.25 mg subcut QWEEK Qty: 2 0RF Rx Instructions: administer weeks 1 through 4 of therapy Wegovy 0.5 mg/0.5 mL pen injector 0.5 mg subcut Q7D Qty: 2 0RF Rx Instructions: administer weeks 5 through 8 of therapy omeprazole 40 mg capsule,delayed release(DR/EC) 40 mg PO QDAY Qty: 90 3RF calcium polycarbophil [FiberCon] 625 mg tablet 1,250 mg PO BID Qty: 100 5RF cyclobenzaprine 10 mg tablet 10 mg PO BID PRN (Reason: muscle spasm) Qty: 14 0RF senna 8.6 mg capsule 8.6 mg PO DAILY PRN (Reason: constipation) Qty: 90 0RF hydrocodone-acetaminophen 5-325 mg tablet 1 tab PO Q6H PRN (Reason: pain) Qty: 10 0RF Follow Up/Referrals: Suha Feliz MD [Primary Care Provider] - Stand Alone Forms: MyHealth Info Instructions
[2023-07-10 12:44] LABS: Basophils Absolute Auto 0.03 K/uL (0.00-0.30); Basophils Percent Auto 0.4 % (0.0-3.0); Eosinophils Absolute Auto 0.12 K/uL (0.00-0.50); Eosinophils Percent Auto 1.7 % (0.0-7.0); Hemoglobin* 12.2 gm/dL (12.0-16.0); Immature Granulocytes Abs Auto 0.01 K/uL (0.00-0.30); Immature Granulocytes Pct Auto 0.1 %; Lymphocytes Absolute Auto 1.98 K/uL (0.90-2.90); Lymphocytes Percent Auto 27.9 % (20-44); Mean Corpuscular HGB Conc 31 gm/dL (32-36); Mean Corpuscular Hemoglobin 24 pg (26-34); Mean Corpuscular Volume 78 fL (80-100); Monocytes Percent Auto 5.9 % (0.0-11.0); Neutrophils Absolute Auto 4.54 K/uL (1.7-7.0); Platelet Count* 268 K/uL (140-440); RDW Coefficient of Variation % 14.8 % (11.5-15.5); Red Blood Count 4.99 m/uL (4.00-5.20)
[2023-07-10 12:49] LABS: Slide Review Reflex No
[2023-07-10 12:56] LABS: Albumin* 3.9 g/dL (3.3-5.0); Chloride* 101 mmol/L (96-114)
[2023-07-10 12:57] LABS: Potassium* 4.2 mmol/L (3.6-5.1); Sodium* 138 mmol/L (135-149)
[2023-07-10 12:59] LABS: Bilirubin Total* 0.3 mg/dL (0.1-1.5); Creatinine* 0.7 mg/dL (0.5-1.5); Est. Creatinine Clearance* 86.61; Estimated Glomerular Filt Rate 111 ml/min
[2023-07-10 13:00] LABS: Alanine Aminotransferase* 24 U/L (4-35); Alkaline Phosphatase* 83 U/L (40-150); Anion Gap 11 mEq/L (7-15); Aspartate Amino Transferase* 31 U/L (12-35); Blood Urea Nitrogen* 14 mg/dL (5-24); Calcium* 8.7 mg/dL (8.4-10.6); Carbon Dioxide* 26 mmol/L (20-32); Glucose* 94 mg/dL (60-115); Lipase* 59 U/L (23-300); Total Protein* 7.6 g/dL (6.0-8.3)
[2023-07-10 13:03] LABS: C Reactive Protein* 1.1 mg/dL (0.5-1.0)
[2023-07-10 13:53] VITALS: BP 113/87; PULSE 85; RESP 20; O2SAT 100
== END 2023-07-10 14:22 | disposition home or self-care (01) ==
PROVIDERS: Emergency Provider Emergency Medicine; PCP Family Medicine
DX: R10.11 Right upper quadrant pain (principal)
CPT/HCPCS: 36415; 80053; 83690; 85025; 86140; 99283; 99284

== ENCOUNTER 2023-08-25 20:44 | Outpatient (CLI) | payer OTHER, SELFPAY ==
--- NOTE | 2023-09-02 08:53 | W.PM.SLEEP ---
Sleep Study Details Details Interpreting Provider: Pat Date of Sleep Study: 08/25/23 Sleep Study Details: STUDY TYPE:? Hospital-based with CPAP titration ? BMI:? 47.9 ORDERING PROVIDER:? Tray INDICATION:? Concerns about sleep apnea ? SLEEP SUMMARY:? 369.5 minutes of sleep time, arousal index 11.4 RESPIRATORY SUMMARY:? Mean oxygen awake 98 asleep 95 minimum 78 10.3 minutes oxygen between 80 and 88% AHI 24.4, supine AHI 0, supine RDI 11.4, no supine REM sleep was seen The nonsupine REM AHI was 3.2 CPAP was titrated up to a pressure of 8 decreasing AHI to 10.9. Supine REM stage sleep was seen at pressures of 6 7 and 8. PERIODIC LIMB MOVEMENTS OF SLEEP:? None were observed CARDIAC:? Awake 75, asleep 63, no arrhythmias noted IMPRESSION:? Moderate obstructive sleep apnea interestingly better in the supine position. CPAP titration was partially successful at pressures of 6 and 8. RECOMMENDATION: Recommend trial of AutoSet CPAP at pressure range of 5-17 with close follow-up.
== END 2023-08-25 20:45 | disposition home or self-care (01) ==
LOC: SLEEP 20:44
PROVIDERS: PCP Family Medicine; Visit Provider Family Medicine
DX: G47.33 Obstructive sleep apnea (adult) (pediatric) (principal)
CPT/HCPCS: 95811; A9270

== ENCOUNTER 2023-10-30 08:56 | Outpatient (RCR) | payer OTHER, SELFPAY | END 2024-02-27 23:59 | disposition home or self-care (01) | PROVIDERS: PCP Family Medicine; Visit Provider Family Medicine | DX: M17.0 Bilateral primary osteoarthritis of knee (principal); M25.562 Pain in left knee; M25.561 Pain in right knee; R26.89 Other abnormalities of gait and mobility; R29.898 Other symptoms and signs involving the musculoskeletal system; Z51.89 Encounter for other specified aftercare | CPT/HCPCS: 97110; 97162 ==

== ENCOUNTER 2024-02-27 14:16 | Emergency (ER) | payer OTHER, SELFPAY ==
[2024-02-27 14:24] VITALS: BP 124/85; PULSE 74; RESP 14; TEMP 36.4; O2SAT 97; BMI 44.3
--- NOTE | 2024-02-27 15:06 | ED_ITS ---
HPI - Dizziness General Chief Complaint: Dizziness/Vertigo Stated Complaint: Vomiting, dizzy Time Seen by Provider: 02/27/24 14:49 History of Present Illness HPI Narrative: This 43-year-old female comes in reporting vertigo symptoms that began early this morning. She has had some associated nausea and vomiting. She states that the vertigo symptoms are minimal or absent if she remains still but can be reproduced with any kind of movement. She does not report any hearing changes. Related Data Previous Rx's ?Medication ?Instructions ?Recorded omeprazole 40 mg capsule,delayed 40 mg PO QDAY #90 caps 05/22/23 release calcium polycarbophil 625 mg 1,250 mg (2 x 625 mg) PO BID #100 06/26/23 tablet (FiberCon) tabs meclizine 25 mg tablet 25 mg PO QID #20 tabs 02/27/24 ondansetron HCl 4 mg tablet 4 mg PO Q6H #10 tabs 02/27/24 Allergies Allergy/AdvReac Type Severity Reaction Status Date / Time Sulfa (Sulfonamide Allergy Intermediate Verified 01/22/24 09:07 Antibiotics) Penicillins Allergy Unknown Unknown Verified 01/22/24 09:07 Review of Systems Status of ROS: Reports: 10 or more systems reviewed and unremarkable except as noted in History and below Narrative: Constitutional: No fevers, no weight gain or loss. Eyes: No discharge. No vision changes. HENT: No congestion, no sore throat, no ear pain. Cardiovascular: No chest pain, no palpitations. Respiratory: No shortness of breath, no wheezes, no cough. Gastrointestinal: No abdominal pain, no diarrhea. She reports nausea and vomiting related to vertigo symptoms. Genitourinary: No dysuria, no hematuria. Musculoskeletal: Normal range of motion. Skin: No rashes, no pruritis. Neurological: No weakness, sensory change, speech change. Vertigo as described above. Endo/Heme/Allergies: No bruising or bleeding. No polydipsia. Pysch: no suicidality, no anxiety, no insomnia. All other systems reviewed and are negative. [facility] Medical History Chronic pain of right knee ?M25.561 - Pain in right knee (ICD-10) ?G89.29 - Other chronic pain (ICD-10) Cholelithiasis ?K80.20 - Calculus of gallbladder without cholecystitis without obstruction (ICD-10) GERD (gastroesophageal reflux disease) (2018) ?K21.9 - Gastro-esophageal reflux disease without esophagitis (ICD-10) Varicose veins of left lower extremity ?I83.92 - Asymptomatic varicose veins of left lower extremity (ICD-10) Superficial thrombophlebitis ?I80.9 - Phlebitis and thrombophlebitis of unspecified site (ICD-10) Prediabetes (02/2020) ?R73.03 - Prediabetes (ICD-10) High density lipoprotein (HDL) less than 40 mg/dL ?E78.6 - Lipoprotein deficiency (ICD-10) History of migraine ?Z86.69 - Personal history of other diseases of the nervous system and sense organs (ICD-10) History of chronic back pain ?Z87.39 - Personal history of other diseases of the musculoskeletal system and connective tissue (ICD-10) Surgical History History of cholecystectomy (06/12/23) ?Z90.49 - Acquired absence of other specified parts of digestive tract (ICD- 10) Encounter for Essure implantation ?Z30.2 - Encounter for sterilization (ICD-10) History of arthroscopy of left knee (03/19/16) ?Z98.890 - Other specified postprocedural states (ICD-10) Family History Diabetes Mother Maternal Grandmother Migraine headache Mother High blood pressure Mother Social History Narrative: 3 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[employer] Social drinker 1-2 week stopped smoking 2018, 15 pack years Does not exercise What is your current living situation?: I presently have a place to live Problems where you live: no known problems In the past 12 months, utilities in danger of being shut off: no In past 12 months, lack of transportation kept you from medical appts, meetings, work, or getting things needed for daily living: no In the past 12 mos, have been you worried that your food would run out before you had money to buy more?: never true In the past 12 mos, the food you bought just didn't last and you didn't have money to buy more?: never true Smoking Status: Never smoker Do you use any of these nicotine containing products: None How often do you have a drink containing alcohol: never How often do you have six or more drinks on one occasion: Never AUDIT-C Alcohol total score: 0 Non-prescribed substance use: denies use How often does anyone, including family, friends and others, physically hurt you : never How often does anyone, including family, friends and others, insult or talk down to you: rarely How often does anyone, including family, friends and others, threaten you with harm: never How often does anyone, including family, friends and others, scream or curse at you: rarely Little interest or pleasure in doing things: several days Feeling down, depressed, or hopeless: several days Are you using contraception or practicing any form of control: No service: No Exam Narrative: Exam Narrative: Constitutional: Well-developed, well-nourished, no acute distress. HEENT: Normocephalic, atraumatic. Neck: Normal range of motion. Nontender. Supple. Heart: Intact distal pulses. Lungs: No chest discomfort. No wheezes, rhonchi, or rales. Abdomen: Nontender. Back: Normal range of motion. Extremities: Normal range of motion. No injury. Skin: Intact. No rash. Warm. No erythema or pallor. Neurologic: No weakness. Alert and oriented. No neurologic deficits. Psychiatric: No suicidality. No anxiety or depression. No insomnia. Nursing notes and vitals signs are reviewed. Const: Vital Signs, click to edit/add: Vital Signs - 24 hr 02/27/24 14:24 Temperature 97.6 F Pulse Rate [Pulse Oximeter] 74 Respiratory Rate 14 Blood Pressure [Ri ght Upper Arm] 124/85 Pulse Oximetry 97 Oxygen Delivery Me thod Room Air Course Vital Signs Vital signs: Initial Vital Signs Temperature 97.6 F 02/27/24 14:24 Temperature Source Temporal Artery Scan 02/27/24 14:24 Pulse Rate 74 02/27/24 14:24 Pulse Rhythm Regular 02/27/24 14:24 Respiratory Rate 14 02/27/24 14:24 Blood Pressure 124/85 02/27/24 14:24 Blood Pressure Mean 98 02/27/24 14:24 Pulse Oximetry 97 02/27/24 14:24 Oxygen Delivery Method Room Air 02/27/24 14:24 Vital Signs Temperature 97.6 F 02/27/24 14:24 Pulse Rate 74 02/27/24 14:24 Respiratory Rate 14 02/27/24 14:24 Blood Pressure 124/85 02/27/24 14:24 Pulse Oximetry 97 02/27/24 14:24 Oxygen Delivery Method Room Air 02/27/24 14:24 Temperature 97.6 F 02/27/24 14:24 Pulse Rate 74 02/27/24 14:24 Respiratory Rate 14 02/27/24 14:24 Blood Pressure 124/85 02/27/24 14:24 Pulse Oximetry 97 02/27/24 14:24 Oxygen Delivery Method Room Air 02/27/24 14:24 Medications Administered Medications: Generic Name Dose Route Start Last Admin Trade Name Freq PRN Reason Stop Dose Admin Sodium Chloride 1,000 mls @ 1,000 mls/hr 02/27/24 15:15 02/27/24 15:21 0.9 % Sodium Chloride 1000 Ml IV 02/27/24 16:14 1,000 mls/hr .Q1H MARKO Administration Discontinued Medications Generic Name Dose Route Start Last Admin Trade Name Freq PRN Reason Stop Dose Admin Meclizine HCl 25 mg 02/27/24 15:05 02/27/24 15:21 Meclizine Hcl 25 Mg Tablet PO 02/27/24 15:06 25 mg ONCE ONE Administration Ondansetron HCl 4 mg 02/27/24 15:05 02/27/24 15:21 Ondansetron 2 Mg/Ml Inj IVP 02/27/24 15:06 4 mg ONCE ONE Administration MDM - Dizziness MDM Narrative Medical decision making narrative: This patient comes in with vertigo symptoms as described above. An IV was established where she received a L of normal saline and 4 mg of Zofran. She also received an oral dose of meclizine 25 mg. Lab results returned with reassuring findings. The patient states that her symptoms have improved with these treatments. She is okay to be discharged home and did received prescriptions for meclizine and Zofran. Lab Data Labs: Lab Results 02/27/24 Range/Units 14:45 WBC 8.51 (4.50-11.00) K/uL RBC 4.80 (4.00-5.20) m/uL Hgb 11.4 L (12.0-16.0) gm/dL Hct 36.8 (33.0-51.0) % MCV 77 L (80-100) fL MCH 24 L (26-34) pg MCHC 31 L (32-36) gm/dL RDW Coeff of Milton 14.9 (11.5-15.5) % Plt Count 331 (140-440) K/uL Neut % (Auto) 67.8 (42.0-72.0) % Lymph % (Auto) 24.6 (20-44) % Carbon % (Auto) 5.9 (0.0-11.0) % Eos % (Auto) 0.8 (0.0-7.0) % Baso % (Auto) 0.4 (0.0-3.0) % Neut # (Auto) 5.78 (1.7-7.0) K/uL Lymph # (Auto) 2.09 (0.90-2.90) K/uL Carbon # (Auto) 0.50 (0.00-0.90) K/UL Eos # (Auto) 0.07 (0.00-0.50) K/uL Baso # (Auto) 0.03 (0.00-0.30) K/uL Abs Immat Gran (auto) 0.04 (0.00-0.30) K/uL Imm/Tot Granulo (auto) 0.5 % Sodium 138 (135-149) mmol/L Potassium 3.6 (3.6-5.1) mmol/L Chloride 106 (96-114) mmol/L Carbon Dioxide 27 (20-32) mmol/L Anion Gap 5 L (7-15) mEq/L BUN 15 (5-24) mg/dL Creatinine 0.7 (0.5-1.5) mg/dL Estimated Creat Clear 85.72 Estimated GFR 110 ml/min Glucose 99 (60-115) mg/dL Calcium 8.9 (8.4-10.6) mg/dL Discharge Plan Discharge Clinical Impression: Acute vestibular neuritis Patient Disposition: Home, Self-Care Condition: Improved Additional Instructions: Take medication as needed and directed. Increase activity as tolerated. Follow up with MD or return if worsening. Prescriptions: New ondansetron HCl 4 mg tablet 4 mg PO Q6H Qty: 10 0RF meclizine 25 mg tablet 25 mg PO QID Qty: 20 0RF No Action omeprazole 40 mg capsule,delayed release(DR/EC) 40 mg PO QDAY Qty: 90 3RF calcium polycarbophil [FiberCon] 625 mg tablet 1,250 mg PO BID Qty: 100 5RF Follow Up/Referrals: Suha Feliz MD [Primary Care Provider] - Stand Alone Forms: [facility] Info Instructions
[2024-02-27] MEDS: ONDANSETRON 2 MG/ML inj 4 MG IVP (15:21)
[2024-02-27] MEDS: 0.9 % SODIUM CHLORIDE 1000 ml 1,000 ML IV (15:21)
[2024-02-27] MEDS: MECLIZINE HCL 25 MG TABLET PO (15:21)
--- OUTSIDE RECORDS SUMMARY | 2024-02-27 15:23 | XMS_ITS | Clinical Summary ---
Author Organization [employer] [facility] Address [place], [place] [address] Care Team Providers Care Rn Camp Name Role Phone Cassidy Jones MD Primary Care Provider Allergies Active Allergy Reactions Criticality Noted Date Comments Penicillins 03/05/2011 Sulfa (Sulfonamide Antibiotics) 02/20 Medications Medication Sig Dispensed Refills Start Date End Date Status terbinafine HCL (LAMISIL) 250 mg tablet Take 250 mg by mouth once daily. 07/27/2021 Active azithromycin (ZITHROMAX) 250 mg tablet TAKE TWO TABLETS BY MOUTH DAILY FOR 1 DAY THEN TAKE ONE TABLET DAILY X 4 DAYS 04/03/2021 Active efinaconazole (Jublia) 10 % topical solutionIndication s:Dermatophytosis of nail Apply topically to affected area(s) once daily. 8 mL 1 01/03/2022 Active omeprazole (PRILOSEC) 40 mg Delayed-Release capsule Take 40 mg by mouth once daily. 06/06/2023 Active Wegovy 0.25 mg/0.5 mL pen Inject 1 mg subcutaneous once weekly. 05/28/2023 Active meloxicam 15 mg tabletIndications: Arthritis of right knee,Arthritis of left knee Take 1 Tablet (15 mg) by mouth once daily. 30 Tablet 2 10/09/2023 Active Active Problems No known active problems Immunizations Name Administration Dates Next Due Tdap 05/25/2013 Family History Medical History Relation Name Comments Diabetes Maternal Grandfather Diabetes Maternal Grandmother Diabetes Maternal Uncle Diabetes Mother Cancer-breast No Family History Cancer-colon No Family History Heart Disease No Family History Relation Name Status Comments Maternal Grandfather Maternal Grandmother Maternal Uncle Mother Social History Tobacco Use Types Packs/Day Years Used Date Smoking Tobacco: Every Day Smokeless Tobacco: Never Tobacco Cessation:Ready to Q uit: Yes; Counseling Given: Yes Comments:8 cigs per day Alcohol Use Standard Drinks/Week Comments No 0 (1 standard drink = 0.6 oz pur e alcohol) Social Connections Answer Date Recorded Frequency of Communication with Friends and Fami ly Not on file 10/09/2023 Sex and Gender Information Value Date Recorded Sex Assigned at Not on file Gender Identity Not on file Sexual Orientation Not on file Obstetrics History Last Filed Vital Signs Vital Sign Reading Time Taken Comments Blood Pressure 111/78 10/09/2023 1:21 PM ORGANIC CHEMISTRY PROFESSOR Pulse 92 10/09/2023 1:21 PM ORGANIC CHEMISTRY PROFESSOR Temperature 36.8 ??C (98.2 ??F) 10/09/2023 1:21 PM CS T Respiratory Rate - - Oxygen Saturation 99% 10/09/2023 1:21 PM ORGANIC CHEMISTRY PROFESSOR Inhaled Oxygen Concentration - - Weight 112.9 kg (249 lb) 04/18/2015 1:10 PM CDT Height 161.2 cm (5' 3.47) 04/18/2015 1:10 PM CD T Body Mass Index 43.46 04/18/2015 1:10 PM CDT Plan of Treatment Health Maintenance Due Date Last Done Comments Pneumococcal series for age 6-64 (1 of 2 - PCV) 1986 Depression screening for age 12+ 1992 HIV for age 15-65 1995 BMI (ht and wt on same day) for age 18+ 1998 Hepatitis C screening for ag e 18-79 1998 COVID-19 vaccine series (2022- season) 2023 06/12/2021, 05/22/2021 Tetanus booster 05/25/2023 05/25/2013 Influenza for age 9-49 05/23/2024 Pap test for age 21-65 02/13/2025 , 02/13/2022, 04/16/2018, Additional history exists Tdap Completed 05/25/2013 Procedures Procedure Name Priority Date/Time Associated Diagnosis Comments HPV THIN PREP Routine 02/13/2022 9:00 AM CDT from Last 3 Months or Most Recently Relevant to Health Maintenance Results * HPV HIGH RISK (02/13/2022 9:00 AM CDT) TYPE 16 Negative Negative 02/15/2022 10:35 AM CDT [facility] TYPE 18 Negative Negative 02/15/2022 10:35 AM CDT [facility] TRAL LABORATORY OTHER HIGH RISK TYPES Negative Negative 02/15/2022 10:35 AM CDT [facility] TRA LABORATORY Other (Other) Client Collect / Unknown 02/13/2022 9:00 AM CDT 02/14/2022 8:55 AM CDT Narrative [facility] - 02/15/2022 10:35 AM CDT HPV types 16, 18, 31, 33, 35, 39, 45, 51, 52, 56, 58, 59, 66 and 68 DNA were undetectable or below the pre-set threshold. Methodology: Chip Mikel 4800 HPV Test Solo Yarbrough MD MICROBIOLOGY [facility] [address] [place] [address], from Last 3 Months or Most Recently Relevant to Health Maintenance Care Teams Rn Camp Relationship Specialty Start Date End Date Cassidy Jones MD [address] [place] [address] PCP - General Family Practice 03/05/11
[2024-02-27 15:30] LABS: Basophils Absolute Auto 0.03 K/uL (0.00-0.30); Basophils Percent Auto 0.4 % (0.0-3.0); Eosinophils Absolute Auto 0.07 K/uL (0.00-0.50); Eosinophils Percent Auto 0.8 % (0.0-7.0); Hematocrit 36.8 % (33.0-51.0); Hemoglobin* 11.4 gm/dL (12.0-16.0); Immature Granulocytes Abs Auto 0.04 K/uL (0.00-0.30); Immature Granulocytes Pct Auto 0.5 %; Lymphocytes Absolute Auto 2.09 K/uL (0.90-2.90); Lymphocytes Percent Auto 24.6 % (20-44); Mean Corpuscular HGB Conc 31 gm/dL (32-36); Mean Corpuscular Hemoglobin 24 pg (26-34); Mean Corpuscular Volume 77 fL (80-100); Monocytes Percent Auto 5.9 % (0.0-11.0); Neutrophils Absolute Auto 5.78 K/uL (1.7-7.0); Neutrophils Percent Auto 67.8 % (42.0-72.0); Platelet Count* 331 K/uL (140-440); RDW Coefficient of Variation % 14.9 % (11.5-15.5); White Blood Count* 8.51 K/uL (4.50-11.00)
[2024-02-27 15:32] LABS: Chloride* 106 mmol/L (96-114)
[2024-02-27 15:33] LABS: Potassium* 3.6 mmol/L (3.6-5.1); Sodium* 138 mmol/L (135-149)
[2024-02-27 15:34] LABS: Slide Review Reflex No
[2024-02-27 15:35] LABS: Creatinine* 0.7 mg/dL (0.5-1.5); Est. Creatinine Clearance* 85.72; Estimated Glomerular Filt Rate 110 ml/min
[2024-02-27 15:36] LABS: Anion Gap 5 mEq/L (7-15); Blood Urea Nitrogen* 15 mg/dL (5-24); Calcium* 8.9 mg/dL (8.4-10.6); Carbon Dioxide* 27 mmol/L (20-32); Glucose* 99 mg/dL (60-115)
== END 2024-02-27 15:59 | disposition home or self-care (01) ==
PROVIDERS: Emergency Provider Emergency Medicine Emergency Medical Services; PCP Family Medicine
DX: H81.20 Vestibular neuronitis, unspecified ear (principal)
CPT/HCPCS: 36415; 80048; 85025; 96374; 99283; 99284; A9270; J2405; J7030

== ENCOUNTER 2024-08-05 09:18 | Outpatient (CLI) | payer OTHER, SELFPAY ==
--- OUTSIDE RECORDS SUMMARY | 2024-08-05 14:20 | XMS_ITS | Clinical Summary ---
Author Organization [employer] & [facility] Address [place], [place] [address] Care Team Providers Care Dentist Name Role Phone Cassidy Jones MD Primary [...] Comments Blood Pressure 111/78 10/09/2023 1:21 PM LUNCHROOM ATTENDANT Pulse 92 10/09/2023 1:21 PM LUNCHROOM ATTENDANT Temperature 36.8 ??C (98.2 ??F) 10/09/2023 1:21 PM CS T Respiratory Rate - - Oxygen Saturation 99% 10/09/2023 1:21 PM LUNCHROOM ATTENDANT Inhaled Oxygen Concentration - - Weight 112.9 [...] C screening for ag e 18-79 1998 Tetanus booster 05/25/2023 05/25/2013 COVID-19 vaccine series ( season) 2024 06/12/2021, 05/22/2021 Influenza for age 9-49 05/23/2024 Pap test for age 21-65 02/13/2025 , 02/13/2022, 04/16/2018, Additional history exists Tdap Completed 05/25/2013 Procedures Procedure Name Priority Date/Time Associated Diagnosis Comments HPV HIGH RISK Routine 02/13/2022 9:00 AM CDT from Last 3 Months or Most Recently Relevant to Health Maintenance Results * HPV HIGH RISK (02/13/2022 9:00 AM CDT) TYPE 16 Negative Negative 02/15/2022 10:35 AM CDT [facility] TR[facility] LAB[facility] TYPE 18 Negative Negative 02/15/2022 10:35 AM CDT [facility] TRAL LABORATORY OTHER HIGH RISK TYPES Negative Negative 02/15/2022 10:35 AM CDT [facility] TRA LABORATORY Other (Other) Client Collect / Unknown 02/13/2022 9:00 AM CDT 02/14/2022 8:55 AM CDT Narrative [facility] - 02/15/2022 10:35 AM CDT HPV types 16, 18, 31, 33, 35, 39, 45, 51, 52, 56, 58, 59, 66 and 68 DNA were undetectable or below the pre-set threshold. Methodology: Chip Mikel 4800 HPV Test Solo Yarbrough MD MICROBIOLOGY [facility] [address] [place] [address], from Last 3 Months or Most Recently Relevant to Health Maintenance Care Teams Dentist Relationship Specialty Start Date End Date Cassidy Jones MD [address] [place] [address] PCP - General Family Practice 03/05/11
== END 2024-08-05 09:19 | disposition home or self-care (01) ==
PROVIDERS: PCP Family Medicine; Referring Provider Family Medicine; Visit Provider Family Medicine
DX: R73.03 Prediabetes (principal); D64.9 Anemia, unspecified; R53.83 Other fatigue; R60.9 Edema, unspecified; E78.5 Hyperlipidemia, unspecified; D50.9 Iron deficiency anemia, unspecified; E66.01 Morbid (severe) obesity due to excess calories; N92.0 Excessive and frequent menstruation with regular cycle; Z13.9 Encounter for screening, unspecified
CPT/HCPCS: 80053; 80061; 82607; 82728; 83540; 83550; 84443; 86231; 86258; 86364

== ENCOUNTER 2024-08-26 14:35 | Outpatient (CLI) | payer OTHER, SELFPAY ==
--- OUTSIDE RECORDS SUMMARY | 2024-08-26 14:37 | XMS_ITS | Clinical Summary ---
Author Organization [employer] [facility] Address [place], [place] [address] Care Team Providers Care Hazardous Materials Analyst Name Role Phone Cassidy Jones MD Primary [...] Active Active Problems No known active problems Encounters Date Type Department Care Team Description 08/05/2024 Lab Requisition [facility] [phone] Suha Feliz MD from Last 3 Months Immunizations Name Administration Dates Next Due Tdap [...] Comments Blood Pressure 111/78 10/09/2023 1:21 PM PRINTED CIRCUIT BOARDS INSPECTOR Pulse 92 10/09/2023 1:21 PM PRINTED CIRCUIT BOARDS INSPECTOR Temperature 36.8 C (98.2 F) 10/09/2023 1:21 PM PRINTED CIRCUIT BOARDS INSPECTOR Respiratory Rate - - Oxygen Saturation 99% 10/09/2023 1:21 PM PRINTED CIRCUIT BOARDS INSPECTOR Inhaled Oxygen Concentration - - Weight 112.9 [...] 05/23/2024 Pap test for age 21-65 02/13/2025 2, 02/13/2022, 04/16/2018, Additional history exists Tdap Completed 05/25/2013 Procedures Procedure Name Priority Date/Time Associated Diagnosis Comments LAB TRACKING EVENT Routine 08/05/2024 10 :19 PM PRINTED CIRCUIT BOARDS INSPECTOR RETICULOCYTES Routine 08/05/2024 10:19 PM PRINTED CIRCUIT BOARDS INSPECTOR PERIPHERAL BLD MORPHOLOGY Routine 08/05/2024 9:18 AM PRINTED CIRCUIT BOARDS INSPECTOR HPV HIGH RISK Routine 02/13/2022 9:00 AM CDT from Last 3 Months or Most Recently Relevant to Health Maintenance Results * LAB TRACKING EVENT (08/05/2024 10:19 PM PRINTED CIRCUIT BOARDS INSPECTOR) Other (Other) Client Collect / Unknown 08/05/2024 10:19 PM PRINTED CIRCUIT BOARDS INSPECTOR 08/05/2024 10:29 PM PRINTED CIRCUIT BOARDS INSPECTOR Suha Feliz MD LAB BILL ONLY Performing Organization Address [facility] Co de Phone Number [facility] [address] [place] [address], * (ABNORMAL) RETICULOCYTES (08/05/2024 10:19 PM PRINTED CIRCUIT BOARDS INSPECTOR) RETIC% 1.8(H) 0.5 - 1.5 % 08/06/2024 2:39 AM PRINTED CIRCUIT BOARDS INSPECTOR [facility] TRAL LABORATORY RETIC (ABSOLUTE) 0.09(H) 0.03 - 0.08 mil/cu mm 08/06/2024 2:39 AM PRINTED CIRCUIT BOARDS INSPECTOR [facility] Blood BLOOD SPECIMEN / Unknown Client Collect / Unknown 08/05/2024 10:19 PM PRINTED CIRCUIT BOARDS INSPECTOR 08/06/2024 2:34 AM PRINTED CIRCUIT BOARDS INSPECTOR Suha Feliz MD HEMATOLOGY Performing Organization Address City/[facility]/ZIP Co de Phone Number [facility] [address] [place] [address], * PERIPHERAL BLD MORPHOLOGY (08/05/2024 9:18 AM PRINTED CIRCUIT BOARDS INSPECTOR) Case Report Special Hematology Report Case: [id number] Authorizing Provider: Suha Feliz MD Collected: 08/05/2024 0918 Ordering Location: [facility] Received: 08/06/2024 0227 Pathologist: Nathan Balderrama MD Specimen: Peripheral Blood 08/06/2024 4:05 PM PRINTED CIRCUIT BOARDS INSPECTOR [facility]-C ENTRAL LABORATORY Final Diagnosis PERIPHERAL BLOOD: 1. Mild microcytic, hypochromic anemia suggestive of iron deficiency anemia 2. See comment 08/06/2024 4:05 PM PRINTED CIRCUIT BOARDS INSPECTOR [facility] LAB[facility]-C ENTRAL LABORATORY Comment The most common etiology for microcytic anemia is iron deficiency. Recommend correlation with serum iron studies, including ferritin and soluble transferrin receptor assay. Anemia of chronic disease can also exhibit microcytic features. Concurrent anemia of renal insufficiency, medication effect and anatomic blood loss cannot be excluded. There are no findings to suggest hemolysis or a primary bone marrow disorder. This case was also reviewed by Divya Dillon MT, MS ([facility]). Case seen in consultation with Dr. Carvajal. 08/06/2024 4:05 PM [facility]OR[facility]-C ENTRAL LABORATORY Clinical Information The patient is a 43-year-old female. Per CBC scan: Anemia. 08/06/2024 4:05 PM PRINTED CIRCUIT BOARDS INSPECTOR [facility] LAB[facility]-C ENTRAL LABORATORY CBC and Differential HEMATOLOGY PARAMETERS Tested at: [facility] + [facility] RESULTS EXPECTED VALUES WBC: 7.1 4.5-58m5728/cumm RBC: 4.63 4.00-5.20 mil/cumm HGB: 11.1 12-16 gm/dl DECREASED HCT: 35.7 33-51% MCV: 77.0 80-100 fl MICROCYTIC MCH: 24.0 26-34 pg DECREASED MCHC: 31.0 32-36 gm/dl HYPOCHROMIC RDW: 15.1 11.5-15.5% PLT: 303 [id number]/uL Differential Absolute (%) Expected (%) (x10*9/L) (x10*9/L) Neutrophils: 3.99 (56.1) 1.7-7.0 (42-72%) Lymphocytes: 2.5 (35.2) 0.9-2.9 (20-44%) Monocytes: 0.5 (7) <0.9 (0-11%) Eosinophils: 0.1 (1.4) <0.5 (0-2%) Basophils: 0.05 (.7) <0.3 (<3.0%) 08/06/2024 4:05 PM PRINTED CIRCUIT BOARDS INSPECTOR [facility] ENTRAL LABORATORY Reticulocytes Component Value Flag Ref Range Units Status RETIC% 1.8 High 0.5 - 1.5 % Final RETIC (ABSOLUTE) 0.09 High 0.03 - 0.08 mil/cu mm Final 08/06/2024 4:05 PM PRINTED CIRCUIT BOARDS INSPECTOR [facility] Microscopic Description The final diagnosis is based on microscopic examination of an appropriately stained blood smear. 08/06/2024 4:05 PM PRINTED CIRCUIT BOARDS INSPECTOR [facility] Additional Information Interpreted at [facility] - [address] [facility] [address], [place] [address] 08/06/2024 4:05 PM PRINTED CIRCUIT BOARDS INSPECTOR [facility] Blood (Peripheral Blood) 08/05/2024 9:18 AM PRINTED CIRCUIT BOARDS INSPECTOR 08/06/2024 2:27 AM PRINTED CIRCUIT BOARDS INSPECTOR Suha Feliz MD HEMATOLOGY [facility] [address] * HPV HIGH RISK (02/13/2022 9:00 AM CDT) TYPE 16 Negative Negative 02/15/2022 10:35 AM CDT [facility] TRAL LABORATORY TYPE 18 Negative Negative 02/15/2022 10:35 AM CDT [facility] TRAL LABORATORY OTHER HIGH RISK TYPES Negative Negative 02/15/2022 10:35 AM CDT [facility] TRAL LABOR[facility]ORY Other (Other) Client Collect / Unknown 02/13/2022 9:00 AM CDT 02/14/2022 8:55 AM CDT Narrative [facility] - 02/15/2022 10:35 AM CDT HPV types 16, 18, 31, 33, 35, 39, 45, 51, 52, 56, 58, 59, 66 and 68 DNA were undetectable or below the pre-set threshold. Methodology: Chip Mikel 4800 HPV Test Solo Yarbrough MD MICROBIOLOGY [facility]-CENTRAL LABORATORY [address] [place] [address], from Last 3 Months or Most Recently Relevant to Health Maintenance Care Teams Hazardous Materials Analyst Relationship Specialty Start Date End Date Cassidy Jones MD [address] [place] [address] PCP - General Family Practice 03/05/11
--- NOTE | 2024-08-26 14:45 | CRLHL7_ITS ---
For Patients: As a result of the Century Cures Act, medical imaging exams and procedure reports are released immediately into your electronic medical record. You may view this report before your referring provider. If you have questions, please contact your health care provider. INDICATION: Anemia. COMPARISON: Ultrasound pelvis from 03/20/2020 FINDINGS: Transvaginal and transabdominal ultrasound examination of the female pelvis was performed. Initial examination is performed with transabdominal technique and transvaginal technique is used for better visualization of the pelvic structures. The uterus is anteverted with no evidence of mass. It measures 7.7 x 5.0 x 4.7 cm. The endometrial lining is normal in thickness at 9 mm, decreased from the previous study where it measured 13 millimeters. Echogenic structure is present in the right cornu, consistent with Essure sterilization. The ovaries can not be identified on either transabdominal or transvaginal examination. There is no sign of free fluid in the pelvis. IMPRESSION: 1. Echogenic structure in the right uterine cornu consistent with Essure sterilization. 2. The ovaries can not be identified. 3. Otherwise normal ultrasound examination of the uterus using transvaginal and transabdominal technique. Dictated by Jeffrey Moreno MD @ 08/27/2024 9:52:59 PM (Electronically Signed)
== END 2024-08-26 14:36 | disposition home or self-care (01) ==
LOC: US 14:36
PROVIDERS: PCP Family Medicine; Visit Provider Family Medicine
DX: D64.9 Anemia, unspecified (principal); N92.0 Excessive and frequent menstruation with regular cycle
CPT/HCPCS: 76830; 76856

== ENCOUNTER 2024-10-05 08:05 | Outpatient (CLI) | payer OTHER, SELFPAY | END 2024-10-05 08:06 | disposition home or self-care (01) | LOC: NFLDREF 10-11 04:15 | PROVIDERS: PCP Family Medicine; Referring Provider Family Medicine; Visit Provider Family Medicine | DX: D50.9 Iron deficiency anemia, unspecified (principal); E66.01 Morbid (severe) obesity due to excess calories; Z68.42 Body mass index [BMI] 45.0-49.9, adult; R73.03 Prediabetes; G47.33 Obstructive sleep apnea (adult) (pediatric); R53.82 Chronic fatigue, unspecified; F41.9 Anxiety disorder, unspecified; F32.A Depression, unspecified; K21.9 Gastro-esophageal reflux disease without esophagitis | CPT/HCPCS: 80053; 82728; 83540; 83550 ==

== ENCOUNTER 2024-10-07 09:38 | Outpatient (CLI) | payer OTHER, SELFPAY ==
--- NOTE | 2024-10-07 10:10 | P.ANES_ITS ---
Anesthesia Charges Start Date/Time Anesthesia Start Date: 10/07/24 Anesthesia Start Time: 10:22 Stop Date/Time Anesthesia Stop Date: 10/07/24 Anesthesia Stop Time: 11:00 Coding CPT Codes CPT Codes: ANES UPR LWR GI NDSC PX - 53258 ([id number]) P3 - PATIENT W/SEVERE SYS DISEASE, QK - SALESPERSON FLOOR COVERINGS 2-4 CNCRNT ANES PROC, QX - WEATHER STRIP MECHANIC SVC W/ MD MED DIRECTION
--- NOTE | 2024-10-07 10:10 | W.ANESCHARGE ---
Anesthesia Charges Start Date/Time Anesthesia Start Date: 10/07/24 Anesthesia Start Time: 10:22 Stop Date/Time Anesthesia Stop Date: 10/07/24 Anesthesia Stop Time: 11:00 Coding CPT Codes CPT Codes: ANES UPR LWR GI NDSC PX - 86079 ([id number]) P3 - PATIENT W/SEVERE SYS DISEASE, QK - TERRAZZO FINISHER HELPER 2-4 CNCRNT ANES PROC, QX - GENERAL ASSISTANT SVC W/ MD MED DIRECTION
--- NOTE | 2024-10-07 11:06 | P.ANES_ITS ---
Anesthesia Charges Start Date/Time Anesthesia Start Date: 10/07/24 Anesthesia Start Time: 10:22 Stop Date/Time Anesthesia Stop Date: 10/07/24 Anesthesia Stop Time: 11:00 Coding CPT Codes CPT Codes: ANES UPR LWR GI NDSC PX - 76680 ([id number]) P3 - PATIENT W/SEVERE SYS DISEASE, QK - SEAT COVER INSTALLER 2-4 CNCRNT ANES PROC, QX - MANAGER EMERGENCY DEPARTMENT SVC W/ MD MED DIRECTION
--- NOTE | 2024-10-07 11:06 | W.ANESCHARGE ---
Anesthesia Charges Start Date/Time Anesthesia Start Date: 10/07/24 Anesthesia Start Time: 10:22 Stop Date/Time Anesthesia Stop Date: 10/07/24 Anesthesia Stop Time: 11:00 Coding CPT Codes CPT Codes: ANES UPR LWR GI NDSC PX - 35715 ([id number]) P3 - PATIENT W/SEVERE SYS DISEASE, QK - COSMETOLOGY EDUCATOR 2-4 CNCRNT ANES PROC, QX - SOCIAL WORKER PSYCHIATRIC SVC W/ MD MED DIRECTION
== END 2024-10-07 09:39 | disposition home or self-care (01) ==
LOC: OP CLINIC 09:39
PROVIDERS: PCP Family Medicine; Visit Provider Surgery
DX: D50.9 Iron deficiency anemia, unspecified (principal)
CPT/HCPCS: 00813; 43239; 45378; 88305; J2704; J3490

== ENCOUNTER 2024-11-30 08:14 | Day surgery (SDC) | payer OTHER, SELFPAY ==
[2024-11-30] VITALS (18 sets, daily range): BP systolic 112–144; BP diastolic 56–82; PULSE 54–105; RESP 16–18; TEMP 35.9–36.6; O2SAT 91–100; BMI 46.8
[2024-11-30] MEDS: LACTATED RINGERS 1000 ML 1,000 ML 100 ML IV (08:20)
[2024-11-30] MEDS: SODIUM CHLORIDE 0.9 % (FLUSH) 10 ML SYRINGE IVF (08:41)
[2024-11-30 08:51] LABS: Hemoglobin* 11.7 gm/dL (12.0-16.0)
[2024-11-30 09:08] LABS: Creatinine* 0.7 mg/dL (0.5-1.5); Est. Creatinine Clearance* 81.11; Estimated Glomerular Filt Rate 109 ml/min
--- NOTE | 2024-11-30 09:09 | W.PM.H&PU ---
History & Physical Update History & Physical Update H&P Reviewed and patient assessed: No changes noted
[2024-11-30 09:25] LABS: HCG Qualitative Serum* Negative (Negative)
[2024-11-30] MEDS: CLINDAMYCIN 900 MG/50 ML-D5W 900 MG/50 ML PIGGYBACK 100 MG IVPB (09:45)
--- NOTE | 2024-11-30 10:03 | W.PM.NB ---
Nerve Block Nerve Block Time Seen by Provider: 09:50 Date Seen: 11/30/24 Type of block requested by surgeon for post-operative analgesia: TAP Side: bilateral Time out performed: Yes Verification of patient name: Yes Verification of date of : Yes Site marking: site marked Name of person performing procedure: Helio Continuous monitoring Was continuous monitoring of O2 sat, B/P, satellite project site monitor, recorded every 15 minutes?: Yes Procedure Checklist: sterile prep, needles and gloves Ultrasound guided. Images saved: Yes Medications given in 5ml increments after negative aspiration: Marcaine %: 0.25 mL: 30 Needle gauge: 20 and Exparel mL: 10 Patient tolerated procedure well: Yes Additional comments: Needle noted between internal oblique and transversus abdominus. Local spread visualized Block Charges Block Charge (with Pro Fee): TAP Bilateral Use of Ultrasound Machine for Block: Yes- US Guidance/pain block
--- NOTE | 2024-11-30 10:03 | W.ANESCHARGE ---
Anesthesia Charges Start Date/Time Anesthesia Start Date: 11/30/24 Anesthesia Start Time: 09:39 Stop Date/Time Anesthesia Stop Date: 11/30/24 Anesthesia Stop Time: 12:30 Coding CPT Codes CPT Codes: ANESTH SURG LOWER ABDOMEN - 86877 ([id number]) P3 - PATIENT W/SEVERE SYS DISEASE, QK - CONTINUOUS WAVE OPERATOR 2-4 CNCRNT ANES PROC, QX - O AND M SUPERVISOR SVC W/ MD MED DIRECTION
[2024-11-30] MEDS: GENTAMICIN 400 MG in 0.9 % SODIUM CHLORIDE 100 ml 100 ML 110 MG IVPB (10:05)
--- NOTE | 2024-11-30 11:49 | PM.GSPRC ---
Operative Note Date of procedure: 11/30/24 Pre-op diagnosis: Menorrhagia and chronic anemia Post-op diagnosis: Same Type of Procedure: 1. Laparoscopic total hysterectomy 2. Bilateral salpingectomy 3. Cystoscopy Indications: Intraoperative consultation requested. Please see primary surgeon for risks and benefits of procedure, as well as indications. Procedure Description: I was asked to see the patient intraoperatively for possible colon injury that occurred with manipulation of the bowel. When I walked into the operating room the Patient was intubated with trocars in place and in Trendelenburg position. Using two soft jaws I evaluated the sigmoid colon. The mesentery was intact. The colon was perfused. On the medial aspect of the distal sigmoid was a laceration of the epiploic fat. This was hemostatic with no hematoma and no evidence of underlying serosal injury. The colon wall was well visualized, healthy in appearance with no repair needed. I then left the operating room, please see Dr. Laboy's note for further details. Findings: Laceration of epiploic fat in the distal sigmoid colon, no evidence of colon injury. Anesthesia: GETA Surgeon: Althea Mason MD Estimated blood loss (mL): 0 Condition: stable Disposition: no change
[2024-11-30] MEDS: BUPIVACAINE 0.25% 30 ML INJECTION (11:50)
[2024-11-30] MEDS: KETOROLAC 30 MG/ML inj IVP ×2 (11:51→18:48)
[2024-11-30] MEDS: LACTATED RINGERS 500 ML 500 ML 125 ML IV (11:53)
--- NOTE | 2024-11-30 12:06 | W.PM.GYNPROC ---
Procedure Note Date of procedure: 11/30/24 Will [facility] bill your pro fee for this procedure?: Yes Pre-op diagnosis: Abnormal uterine bleeding-anovulatory bleeding , anemia Post-op diagnosis: Abnormal uterine bleeding-anovulatory bleeding, anemia Procedure: Total laparoscopic hysterectomy, bilateral salpingectomy, cystoscopy Anesthesia: GETA Complications: None Surgeon: Elidia Chatterjee MD Lithographic General Worker: Becky Jenkins Estimated blood loss (mL): 200 IV fluids (mL): 1,100 Urine Output (mL): 200 Pathology: specimen obtained, sent to pathology (Uterus with left fallopian tube and left sided ESSURE attached, right fallopian tube and right sided Essure ) Condition: stable Disposition: floor Findings: External genitalia normal, speculum exam: cervix grossly normal w/o lesions or abnormal discharge. Uterine sound 8cm. Abdomen: skin lesion with what looks like an eschar on the left mid abdomen-this was left untouched. Intra abdominal survey: Omental adhesion on the RUQ, grossly normal liver, stomach, intestines. Uterus of about 8cm in size, bilateral fallopian tubes grossly normal, evidence of Essure implants bilaterally. Right ovary with a small simple cyst of about 1-2cm. Left ovary grossly normal. Sigmoid colon with small tear in epiploica fat that was not bleeding, general surgery evaluated lesion and no need for repair. Please refer to Dr. Mason's note for complete details. Procedure Description: DESCRIPTION OF PROCEDURE: After obtaining informed consent, the patient was taken to the operating room where general anesthesia was obtained without difficulty. She was prepared and draped in the normal sterile fashion in the low dorsal lithotomy position. A Parikh catheter was inserted into the bladder and left to gravity drainage. A medium Graves open-sided speculum was introduced into the vagina. The cervix was visualized and grasped along its anterior lip with a single-tooth tenaculum. The uterus was gently sounded. Sound length was found to be 8 cm. No need for cervical dilation. I then placed a Medium VCare uterine manipulator. The tenaculum and speculum were removed. The green VCare cup was digitally pressed up against the cervix and then cinched in place with the blue accessory cup. I then changed gloves and my attention was turned to the abdomen. The superior aspect of the umbilical fold was injected with 0.25% Bupivacaine plain. A 5 mm vertical incision was then made within the umbilical fold using a scalpel. A direct entry technique was used and a 5 mm laparoscopic port with CO2 gas set at 5mmHg was introduced under direct visualization. The trocar was removed leaving the sleeve in place. The CO2 gas flow was turned to high flow to achieve pneumoperitoneum. The 5 mm laparoscope was used then to carefully inspect the abdomen and pelvis with findings noted above. Pictures were taken for documentation purposes. The patient was placed in Trendelenburg positioning. Two additional ports were placed in the right and left lower quadrants under direct visualization after first anesthetizing the skin and fascia with 0.25% Bupivacaine plain. On the left side a 11mm port was utilized and on the right side a 5mm port placed. An additional 5mm port was placed on the abdomen at the level of the umbilicus to the left of umbilicus, about 5-6 cm lateral from umbilicus under direct visualization. Once the ports were in place, the VCare manipulator was used to elevate the uterus. The VCare cup was visualized and palpated with a blunt grasper. The left tube was elevated with a graspers. The LigaSure device was used to dissect the tube from it's ovarian and broad ligament and left attached to the uterus. Excellent hemostasis was obtained. The remaining broad ligament attachments were sealed and transected with the LigaSure device. The left round ligament was then sealed in a wide swath and transected with the LigaSure, excellent hemostasis was obtained. The broad ligament was then opened using the LigaSure anteriorly and posteriorly along the cervix from the left within the confines of the VCare cup. Pressure was maintained on the uterine manipulator the whole time. The left uterine vessels were sealed in a wide swath and transected with the LigaSure, then the tissues over the VCare cup edge on the left side were thinned using the LigaSure to the midline posteriorly and anteriorly so that the fascial layer could be identified. The right tube was elevated with a graspers. The LigaSure device was used to dissect the tube from it's ovarian and broad ligament and cornual attachments before removing the tube through a lower port. The right Essure device was also grasped and removed entirely through a lower port. Excellent hemostasis was obtained. The remaining broad ligament attachments were sealed and transected with the LigaSure device. The right round ligament was then sealed in a wide swath and transected with the LigaSure, excellent hemostasis was obtained. The broad ligament was then opened using the LigaSure anteriorly and posteriorly along the cervix from the right within the confines of the VCare cup. Pressure was maintained on the uterine manipulator the whole time. The right uterine vessels were sealed in a wide swath and transected with the LigaSure, then the tissues over the VCare cup edge on the right side were thinned using the LigaSure to the midline posteriorly and anteriorly so that the fascial layer could be identified. Once an adequate dissection was made circumferentially, a laparoscopic spatula device was utilized to dissect until identification of the green Vcare cup, tissue dissected circumferentially around the cervix within the groove of the VCare cup. Once the dissection was completed circumferentially, from the vagina the uterine manipulator and the uterus were removed. The uterus was left in the vagina to aid in maintaining pneumoperitoneum. Attention again turned to the abdomen. Active bleeding noted from vaginal cuff left corner and attempted to control with LigaSure and monopolar spatula. This did decrease the amount of bleeding and proceeded with vaginal cuff closure, starting from the left side. The vaginal cuff was reapproximated in a running fashion with a V-Loc suture starting from the left side and running across to the right and then back to the midline where the suture was cut flush with the tissues. The pelvis was copiously irrigated and hemostasis visualized. Preparations were then made for cystoscopy. Fluorescein was administered intravenously along with the IV fluids. At this time, we also identified a tear in the distal aspect of the sigmoid epiploica fat and we had asked general surgery to come in for further evaluation. Please refer to her note for complete details. The Parikh catheter was removed. The patient was flattened out. Cystoscopy was performed using sterile normal saline as distending medium. The bladder was carefully inspected and noted to be free of filling defects or suture material. Both ureteral orifices were easily visualized and fluorescein tinged urine jets were noted from both sides. The cystoscope was then removed. The Parikh catheter was replaced into the bladder. Uterus was removed from vagina and with a speculum vaginal cuff inspected, completely closed and w/o evidence of bleeding or pneumoperitoneum escape. Attention was once again turned to the abdomen. The abdomen and pelvis were again irrigated and inspected for hemostasis. Attention was then placed to the 11mm port site and under direct visualization using a Alex-Masha system the fascia was closed. All instruments were then removed under direct visualization. Pneumoperitoneum was allowed to escape. Subcutaneous tissue approximated at all port sites with Vicryl 3-0. The skin at all port sites was closed in a subcuticular fashion with 4-0 Monocryl. LiquiBand was then placed over the incisions. The patient tolerated the procedure well. Sponge, lap, needle, and instrument counts were reported as correct x2. The patient was taken to the recovery room awake and in stable condition. She did receive Clindamycin and Gentamicin preoperatively. PATHOLOGY SPECIMEN(S): Uterus and bilateral fallopian tubes.
--- NOTE | 2024-11-30 12:08 | PM.PROC ---
Procedure Note Time Seen by Provider: 12:08 Date Seen: 11/30/24 Date of procedure: 11/30/24 Will [facility] bill your pro fee for this procedure?: Yes Procedure: assistant associate full professor op note: Preoperative diagnosis: 44-year-old with menorrhagia Postoperative diagnosis: Same Procedure: Total laparoscopic hysterectomy, bilateral salpingectomy, diagnostic cystoscopy Operative note: I was asked to assist Dr. Kelli Colin with the patient's surgery. I aided in dissection, visualization, and obtaining hemostasis. Please see Dr. Colin's note for complete details. Anesthesia: GETA, local and other (TAPS) Condition: stable Disposition: observation
--- NOTE | 2024-11-30 12:36 | W.ANESCHARGE ---
Anesthesia Charges Start Date/Time Anesthesia Start Date: 11/30/24 Anesthesia Start Time: 09:39 Stop Date/Time Anesthesia Stop Date: 11/30/24 Anesthesia Stop Time: 12:30 Coding CPT Codes CPT Codes: ANESTH SURG LOWER ABDOMEN - 22639 ([id number]) P3 - PATIENT W/SEVERE SYS DISEASE, QK - QUALITY TECHNICIAN 2-4 CNCRNT ANES PROC, QX - SUPERVISOR CELL OPERATION SVC W/ MD MED DIRECTION
[2024-11-30] MEDS: LACTATED RINGERS 1000 ML 1,000 ML 40 ML IV (13:40)
[2024-11-30] MEDS: ACETAMINOPHEN 500 MG TABLET 1000 MG PO (17:11)
[2024-11-30] MEDS: OXYCODONE 5 MG TABLET PO (17:12)
[2024-11-30] MEDS: SIMETHICONE 80 MG TAB.CHEW 160 MG PO (17:13)
--- NOTE | 2024-11-30 21:25 | PM.GYNDS1 ---
DS: Providers Provider Date Seen: 11/30/24 Date of admission: 11/30/24 Primary care physician: Suha Feliz MD Attending Physician on discharge: Kelli Chatterjee MD Date of Discharge: 11/30/24 DS: Diagnosis Discharge Diagnosis (1) S/P hysterectomy: Status: Acute Problem details: Total laparoscopic hysterectomy, bilateral salpingectomy, cystoscopy DOOR SLINGER-Discharge Summary Hospital Course Hospital Course Narrative: Patient is a 44 year old admitted on 11/30/24 for elective surgery. Indication for surgery: Abnormal uterine bleeding-anovulatory bleeding and anemia. Intraoperative findings were notable for uterus of about 8cm, grossly normal bilateral fallopian tubes and ovaries. Essure implants. Omental adhesion to anterior abdominal wall. She had an uncomplicated surgery. Postoperative course has been uneventful. Vitals have been stable. She has remained afebrile. Today, on postoperative day 0, she reports the pain is well controlled. She has been able to ambulate Without difficulty. She is tolerating regular diet. She is passing flatus. Parikh catheter has been removed, and she is voiding without difficulty. Time Spent with Patient Time attestation: Total time spent providing and/or coordinating discharge services: Time spent: Less than 30 minutes DOOR SLINGER - Exam Physical Exam: Vital signs: Temp Pulse Resp BP Pulse Ox O2 Del Method O2 Flow Rate 98 F 67 16 132/73 98 Room Air 5 11/30/24 19:50 11/30/24 19:50 11/30/24 19:50 11/30/24 19:50 11/30/24 19:50 11/30/24 19:50 11/30/24 19:50 DOOR SLINGER - DS: Data Data Completed and Pending Labs on day of discharge: Labs from last 24 hours 11/30/24 08:41 Hgb 11.7 L Creatinine 0.7 Estimated Creat Clear 81.11 Estimated GFR 109 HCG, Qual Negative Blood Type O Positive Antibody Screen NEGATIVE Procedures Procedures: Procedures Operation Date: 11/30/24 09:40 Actual Procedure Side Surgeon p Total Laparoscopic Hysterectomy, Bilateral Salpingectomy, Cystoscopy Kelli Chatterjee MD Complications: none Discharge Plan Discharge Disposition: Home w/ Parent or Adult Discharging Surgeon: Kelli Chatterjee Follow-Up Appointment: 2 weeks at [facility] Prescriptions: New acetaminophen 500 mg Tablet 1,000 mg PO Q6H PRNQty: 20 0RF docusate sodium 100 mg Capsule 100 mg PO BID PRN (Reason: Constipation) Qty: 30 0RF ibuprofen 600 mg Tablet 600 mg PO Q6H Qty: 30 0RF Continued Zepbound 2.5 mg/0.5 mL pen injector 2.5 mg subcut QWEEK Qty: 2 0RF Rx Instructions: for 4 weeks Zepbound 5 mg/0.5 mL pen injector 5 mg subcut QWEEK Qty: 2 0RF Zepbound 7.5 mg/0.5 mL pen injector 7.5 mg subcut QWEEK Qty: 2 0RF omeprazole 40 mg capsule,delayed release(DR/EC) 40 mg PO QDAY Qty: 90 0RF Activity Level: Activity as Tolerated and No Weight Bearing Activity Detail: No lifting more than 15-20 pounds, nothing vaginally for 6 weeks. Discharge Diet: Regular Patient Instructions: Laparoscopic Hysterectomy (DC) Additional Instructions: Pain management, focus on ibuprofen 600mg every 6 hours, acetaminophen 500-1000mg every 6 hours. Percocet 5/325mg every 6 hours for continued pain after anti inflammatory medication. Do not exceed 4g of acetaminophen in 24 hours. Follow-up: Suha Feliz MD [Primary Care Provider] - Discharge Orders: Discharge Order (Routine); Ordered 11/30/24 Ordered By: Kelli Chatterjee
--- NOTE | 2024-11-30 22:59 | PC.NURSE ---
Patient discharged to home with adult children. Patient requested to discharge. Minimal gas passed. MD aware and would prefer patient stay for observation overnight but patient declines and chooses to discharge. Did much education at discharge about diet progression, monitoring for nausea, vomiting, passing gas, and return of bowel function. Patient states she understands. Patient is voiding but also stressed the importance of contacting MD if unable to void. Discussed symptoms such as CP, SOB, Fever, etc that would be emergent to report to MD/ER. Patient states she understands. Explained that patient should not exceed 4,000mg Tyenol/APAP in 24 hours. Reviewed how much APAP is in each medication and how to calculate running total.
== END 2024-11-30 22:30 | disposition home or self-care (01) ==
LOC: OR 08:16 → MEDSURG 08:16
PROVIDERS: PCP Family Medicine; Visit Provider Obstetrics & Gynecology
PROC: 0UT94ZZ Resection of Uterus, Percutaneous Endoscopic Approach (ICD-10-PCS; CPT 58571; principal; 2024-11-30 09:30)
DX: N92.0 Excessive and frequent menstruation with regular cycle (principal); N93.8 Other specified abnormal uterine and vaginal bleeding; G89.18 Other acute postprocedural pain; K66.0 Peritoneal adhesions (postprocedural) (postinfection); K91.72 Accidental puncture and laceration of a digestive system organ or structure during other procedure; E66.01 Morbid (severe) obesity due to excess calories; D50.9 Iron deficiency anemia, unspecified; G47.33 Obstructive sleep apnea (adult) (pediatric); Z99.89 Dependence on other enabling machines and devices; Z68.42 Body mass index [BMI] 45.0-49.9, adult; K21.9 Gastro-esophageal reflux disease without esophagitis; R73.03 Prediabetes
CPT/HCPCS: 58571; 00840; 36415; 64488; 76942; 81025; 82565; 84703; 85018; 86850; 86900; 86901; 88307; A4314; A9270; J0330; J0665; J0666; J0736; J1100; J1171; J1580; J1630; J1885; J2250; J2405; J2704; J2710; J3010; J3490; J7120

== ENCOUNTER 2024-12-21 09:23 | Outpatient (CLI) | payer OTHER, SELFPAY | END 2024-12-21 09:24 | disposition home or self-care (01) | PROVIDERS: PCP Family Medicine; Visit Provider Obstetrics & Gynecology | DX: N89.8 Other specified noninflammatory disorders of vagina (principal) | CPT/HCPCS: 87070 ==